=== PATIENT | female | born 1980 | race Caucasian/White ===

== ENCOUNTER 2017-04-29 10:25 | Inpatient (IN) | payer OTHER ==
[2017-04-29] MEDS ORDERED: LACTATED RINGERS 1,000 ML IV SCH (10:45)
[2017-04-29] MEDS ORDERED: LABETALOL 5 MG/ML VIAL MDV IVP STA ×3 (10:50→11:34)
[2017-04-29 11:25] LABS: Basophils % (A) 0 %; CHCM 34.7; Eosinophils # (A) 0.1 k/uL (0-0.7); Eosinophils % (A) 1 %; HCT 34.7 % (34.0-46.0); HDW 3.22; HGB 11.8 gm/dL (11.4-16.0); Luc # (Auto) 0.14; Luc % (Auto) 2; Lymphocytes # (A) 1.5 k/uL (1.0-4.8); Lymphocytes % (A) 16 %; MCH 28.5 pg (25.0-35.0); MCHC 33.9 g/dL (31.0-37.0); Mean Platelet Volume 7.3; Monocytes # (A) 0.4 k/uL (0-1.0); Monocytes % (A) 4 %; Neutrophils # (A) 7.6 k/uL (1.3-7.7); Neutrophils % (A) 78 %; RBC 4.13 m/uL (3.80-5.40); WBC 9.8 k/uL (3.8-10.6); WBC (Perox) 10.26
[2017-04-29 11:38] LABS: ALT 29 U/L (9-52); AST 19 U/L (14-36); Blood Urea Nitrogen 9 mg/dL (7-17); Non-African American GFR(MDRD) >60 (>60 ml/min/1.73 sqM); Uric Acid 5.8 mg/dL (3.7-7.4)
[2017-04-29] MEDS ORDERED: MAGNESIUM SULFATE IVPB ONE ×2 (11:45)
[2017-04-29] MEDS ORDERED: DEXTROSE 5% IVPB ONE ×2 (11:45)
[2017-04-29] MEDS ORDERED: WATER IVPB ONE ×2 (11:45)
[2017-04-29 11:54] LABS: Appearance,Urine Clear (Clear); Bacteria,Urine Occasional /hpf; Bilirubin,Urine Negative (Negative); Glucose,Urine (UA) Negative (Negative); Ketones,Urine Negative (Negative); Leukocyte Esterase,Urine Trace (Negative); Mucus,Urine Rare /hpf; Nitrite,Urine Negative (Negative); Particle Count 5795; Protein,Urine 1+ (Negative); Specific Gravity,Urine 1.011 (1.001-1.035); Squamous Epithelial Cell,Urine 1 /hpf (0-4); UA Billing (MACRO vs. MICRO) MICRO; Urobilinogen,Urine <2.0 mg/dL (<2.0); WBC,Urine 3 /hpf (0-5)
[2017-04-29] MEDS ORDERED: MAGNESIUM SULFATE-WATER PMX 20 GM in WATER FOR INJECTION 1 500ML.BAG IV SCH (12:00)
[2017-04-29] MEDS ORDERED: hydrALAZINE HCL 20 MG/ML 1 ML VIAL IM PRN (12:06)
[2017-04-29] MEDS ORDERED: BETAMET ACET-BETAMETH SOD PHOS 6 MG/ML VIAL IM SCH (13:15)
--- NOTE | 2017-04-29 13:21 | P.HPOB ---
History of Present Illness H&P Date: 04/29/17 Chief Complaint: 24-3/7 weeks, severe hypertension, possible preeclampsia The patient is a 37-year-old 1 para 0 admitted at 24-3/7 weeks as established by last menstrual period and 8 week ultrasound. She is admitted to triage following a visit 2 days ago in the office at which time her blood pressures were elevated in the range of 160s over 90s. She had preeclamptic labs drawn at that time and was asked to keep a lot of blood pressures at home. Her laboratories returned normal with a slightly elevated uric acid at approximately 5.8, normal platelet count, normal AST and ALT and no other significant findings. She presented to the office today with her 24-hour urine collection and a log of blood pressures at home yesterday in the range of 230/ 115-125. She did not call us with any of these levels. Blood pressure of that level was confirmed in our office and she was immediately sent to labor and delivery for further evaluation and workup. On labor and delivery, her opening blood pressure was in the range of 250/130. The labetalol protocol was initiated and she received 20 mg of labetalol at 1104 after a blood pressure of 230/119. 10 minutes later her blood pressures remained 222/111 and another 40 mg of labetalol was given. 10 minutes following that her blood pressure remained 193/91 and 80 mg of labetalol was given. At 1203 her blood pressure remained 179/123 and a dose of IV Apresoline was given. Her most recent blood pressure has come down to only 193/98. heart tones have been documented and are stable. The patient does complain of a headache but no other symptoms. The 24-hour urine returned with 301 mg of protein for 24 hours. Labs done today remained stable with nothing significantly elevated aside from her uric acid at 5.9. We have consult a critical-care to attempt to initiate an antihypertensive drip in order to allow her enough stability to be transferred. The case has been discussed with Dr. White, maternal medicine specialist at [facility] in [place]. She has accepted transfer 1 stability of blood pressure has been achieved. She has also recommended the patient be given a dose of steroids prior to transfer. She additionally carries a past medical history of pseudotumor cerebri which may or may not be of concern. Obstetrical history: 1 para 0 with current statistics listed in in history of present illness. EDC of 08/16/2017 was established by last menstrual period and confirmed by an 8 week ultrasound. She does fall into the category of advanced maternal age and declined testing. Laboratory workup otherwise demonstrates her blood type to be B+ with a negative antibody screen. Rubella status is immune. All other laboratory workup was within normal limits aside from a Pap smear showing low-grade changes. Early Glucola was within normal limits and second trimester Glucola has not yet been performed. Gynecologic history: Unremarkable with no history of any infections to include STDs. Review of Systems Review of systems is confined to history of present illness. Past Medical History History of Any Multi-Drug Resistant Organisms: None Reported Smoking Status: Never smoker Medications and Allergies Home Medications Medication Instructions Recorded Confirmed Type Pnv,Calcium 72/Iron/Folic Acid 04/29/17 History [ Plus Tablet] Allergies Allergy/AdvReac Type Severity Reaction Status Date / Time No Known Allergies Allergy Verified 04/29/17 10:36 Exam - Vital Signs Vital signs: Vital Signs Pulse Resp BP 04/29/17 12:35 90 20 197/82 04/29/17 12:29 88 20 187/95 04/29/17 12:00 82 16 180/103 04/29/17 11:56 78 20 195/93 04/29/17 11:51 96 20 179/123 04/29/17 11:46 90 20 195/112 Intake and Output 04/28/17 04/29/17 04/29/17 22:59 06:59 14:59 Other: Weight 150.593 kg Patient Weight 04/30/17 06:59 Weight 150.593 kg In general, this is a morbidly obese white female in no acute distress. Her heart has a regular rhythm and rate without murmur. Her lungs are clear to auscultation bilaterally in all cortes. Her abdomen is obese, nondistended, has normal active bowel sounds, soft, nontender, and without any palpable masses aside from uterine fundus which measures approximately 24-25 cm in fundal height. Her extremities are without any cyanosis, clubbing, or significant edema. They're nontender to palpation bilaterally. Digital cervical examination is deferred. Results Result Diagrams: 04/29/17 11:12 04/29/17 11:12 Abnormal Lab Results - Last 24 Hours (Table) 04/29/17 Range/Units 10:56 Urine Protein 1+ H (Negative) Ur Leukocyte Esterase Trace H (Negative) Urine Bacteria Occasional H (None) /hpf Urine Mucus Rare H (None) /hpf Assessment and Plan (1) 24 weeks gestation of Status: Acute (2) Hypertensive crisis Status: Acute Plan: Based upon laboratory data return to thus far, this does not appear to be severe preeclampsia though the diagnosis could be made based solely on blood pressures. In either case, we are working steadily to achieve stability of her blood pressures. To that effect critical care has been consulted to initiate and manage a antihypertensive drip in order to achieve stability for transfer of care. This case has been discussed with maternal medicine at [facility] who has accepted the transfer of care once blood pressures are stabilized. Betamethasone 12.5 mg is to be given intramuscularly now and will likely be repeated in 24 hours at the tertiary care institution. She additionally has been started on magnesium sulfate with a 6 g bolus followed by 2 g per hour. Further disposition will await her transferred to [facility] in [place]. She continues to be under close maternal surveillance and, as noted above, will be transferred 1 stability is achieved.
[2017-04-29 14:08] LABS: Glucose,Whole Blood 98 mg/dL (75-99)
[2017-04-29 14:10] VITALS: TEMP 98.1
[2017-04-29] MEDS: CLEVIDIPINE BUTYRATE 25 MG in EMPTY BAG 1 BAG IV SCH ×2 (14:38→16:09)
[2017-04-29 16:07] VITALS: BP 135/72; RESP 18
[2017-04-29 16:37] VITALS: PULSE 87
--- NOTE | 2017-04-29 20:18 | CONS ---
DATE OF CONSULTATION: This is a 37-year-old female. She is 1, para 0, admitted at 24-3/7 week . The patient apparently was discovered to have really high blood pressures. Currently her blood pressure is about 190/107. I was called by Dr. Leach the [facility] physician and I told him that I would be happy to manage her up here until she can be shipped out. She apparently received labetalol down there as well as Apresoline. Despite that, her blood pressure was still very high. We are going to start her on Cleviprex here in the ICU. A second IV was started. I may use some additional labetalol as well. Anyway, the patient is relatively comfortable. She has a really severe headaches though. She did receive quite a bit of magnesium. Other than that she is doing reasonably well. So far uneventful . First . Has no history of any major medical problems. Her past medical history and past surgical history are unremarkable. ALLERGIES: None. Medications at home only include vitamins. SOCIAL HISTORY: Negative for tobacco, alcohol or illicit drug use. Family history is noncontributory. The rest of her history is not too remarkable. OCCUPATIONAL HISTORY: She works at [employer] here in [place] [place]. REVIEW OF SYSTEMS: CONSTITUTIONAL: Negative. NEUROLOGICAL: Headache. HEENT: Negative. CARDIOVASCULAR: Negative. PULMONARY: Negative. GI/: Negative. RHEUMATOLOGICAL/IMMUNOLOGIC: Negative. ENDOCRINOLOGIC: Negative. Current vital signs include temperature 98.1, heart rate 85, respiratory rate 28, blood pressure 190/107, mean 134, room air saturations are 98%. Appears in no acute distress. Not having chest pain or chest discomfort. HEENT examination is grossly unremarkable. Mucous membranes are moist. No oral lesions. Neck is supple. Full range of motion. No adenopathy or thyromegaly. Neck veins are flat. Cardiovascular examination reveals regular rhythm and rate. S1, S2 normal. No S3, S4 or murmur. Lungs reveal clear breath sounds. No wheezes or rhonchi. No crackles. Breath sounds are equal bilaterally. Abdomen is soft. Bowel sounds are heard. Extremities are intact. Minimal edema. No significant edema. Skin without rash. Neurologic examination is currently nonfocal. Labs are reviewed. White count 9.8, hemoglobin 11.8, hematocrit 34.7, platelet count 348,000. BUN and creatinine were 9 and 0.67. Glucose was 98. Uric acid 5.8. Liver function tests were normal. Urine is showing 1+ protein, trace, leukocyte esterase, occasional bacteria, rare mucus. Nitrite negative. Leukocyte esterase was trace positive. Current medications are reviewed. She is on clevidipine drip. It is going to currently run to maintain her blood pressure in a more normal range. She has also had some hydralazine and some labetalol. She has had 3 or 4 doses of labetalol with escalating doses at 20, 40 and 80 mg. She is also received magnesium as well, I think, 6 grams. ASSESSMENT: 1. Hypertensive urgency/emergency in a patient who has got preeclampsia and 1, para 0 at nearly 25 weeks . 2. No other significant past medical history. PLAN: The patient was started on the dihydropyridine calcium randy, clevidipine. I may use some addition labetalol. Additional recommendations and suggestions are forthcoming. The patient will be shipped to [facility]. She is currently in the ICU. We will keep her obviously until she is stable or until she ships. Additional recommendations and suggestions are forthcoming.
== END 2017-04-29 17:25 | disposition short-term general hospital (02) | DRG 781 ==
LOC: FBPOP 10:25 → 4FBP 13:24 → 6ICU 13:28
PROVIDERS: ADMIT Obstetrics & Gynecology; ATTEND Obstetrics & Gynecology
DX: O14.92 Unspecified pre-eclampsia, second trimester (principal); Z68.43 Body mass index [BMI] 50.0-59.9, adult; Z3A.24 24 weeks gestation of pregnancy; O99.212 Obesity complicating pregnancy, second trimester; E66.01 Morbid (severe) obesity due to excess calories; Z79.899 Other long term (current) drug therapy
CPT/HCPCS: 51702; 81001; 82565; 84450; 84460; 84520; 84550; 85025; 96361; 96365; 96366; 96372; 96375; 99215

== ENCOUNTER 2017-07-19 22:19 | Emergency (ER) | payer OTHER ==
--- NOTE | 2017-07-20 00:06 | ED ---
General Adult HPI - General Chief complaint: Skin/Abscess/Foreign Body Stated complaint: Swelling/Rash Time Seen by Provider: 07/19/17 23:57 Source: patient, family, RN notes reviewed Mode of arrival: ambulatory Limitations: no limitations - History of Present Illness Initial comments: Patient 37-year-old female who presents emergency room today with a chief complaint of rash to the lower extremities. She states that she got home from work changed into different closing noticed that there is some redness to the lower shins bilaterally. She admits that she did feel somewhat achy today. She states she feels like her legs are little swollen. She denies any other complaints or symptoms. - Related Data Home Medications Medication Instructions Recorded Confirmed NIFEdipine [NIFEdipine ER] 60 mg PO BID 07/19/17 07/19/17 hydrALAZINE HCL [Hydralazine HCl] 50 mg PO Q6H 07/19/17 07/19/17 Allergies Allergy/AdvReac Type Severity Reaction Status Date / Time No Known Allergies Allergy Verified 07/19/17 22:25 Review of Systems ROS Statement: Those systems with pertinent positive or pertinent negative responses have been documented in the HPI. ROS Other: All systems not noted in ROS Statement are negative. 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 History of Any Multi-Drug Resistant Organisms: None Reported Past Surgical History: Section Additional Past Surgical History / Comment(s): Bilateral myringotomies with tubes, colposcopy Additional Past Anesthesia/Blood Transfusion Reaction / Comment(s): Pt aspirated with anesthesia during first myringotomy and was transfered to [facility]. Past Psychological History: No Psychological Hx Reported Smoking Status: Never smoker Past Alcohol Use History: None Reported Past Drug Use History: None Reported - Past Family History Father Family Medical History: Congestive Heart Failure (CHF), Myocardial Infarction ( [place]) Additional Family Medical History / Comment(s): Father at the age of 62 yrs pt believes from CHF. Mother Family Medical History: Hypertension Additional Family Medical History / Comment(s): Mother has a pacemaker. General Exam - General Exam Comments Initial Comments: General: The patient is awake and alert, in no distress, and does not appear acutely ill. Eye: Pupils are equal, round and reactive to light, extra-ocular movements are intact. No nystagmus. There is normal conjunctiva bilaterally. No signs of icterus. Ears, nose, mouth and throat: There are moist mucous membranes and no oral lesions. Neck: The neck is supple, there is no tenderness or JVD. Cardiovascular: There is a regular rate and rhythm. No murmur, rub or gallop is appreciated. Respiratory: Lungs are clear to auscultation, respirations are non-labored, breath sounds are equal. No wheezes, stridor, rales, or rhonchi. Gastrointestinal: Soft, non-distended, non-tender abdomen without masses or organomegaly noted. There is no rebound or guarding present. No CVA tenderness. Bowel sounds are unremarkable. Musculoskeletal: Normal ROM, no tenderness. Strength 5/5. Sensation intact. Pulses equal bilaterally 2+. Neurological: A&O x 3. CN II-XII intact, There are no obvious motor or sensory deficits. Coordination appears grossly intact. Speech is normal. Skin: Patient does have petechial type rash to the lower extremity. Psychiatric: Cooperative, appropriate mood & affect, normal judgment. Limitations: no limitations Course Vital Signs 07/19/17 07/20/17 22:20 00:15 Temperature 98.5 F 97.9 F Pulse Rate 132 H 105 H Respiratory 18 18 Rate Blood Pressure 173/105 171/97 O2 Sat by Pulse 98 98 Oximetry Medical Decision Making - Medical Decision Making Patient's labs reviewed unremarkable. Patient resting comfortably. Patient is advised close follow-up with her [facility] family doctor. Advised to use blood pressure medication. She states she last take it when she gets home. Case was discussed and seen by attending physician . - Lab Data Result diagrams: 07/20/17 01:00 07/20/17 01:00 Lab Results 07/20/17 07/20/17 07/20/17 Range/Units 00:25 00:25 01:00 WBC 9.3 (3.8-10.6) k/uL RBC 4.81 (3.80-5.40) m/uL Hgb 13.0 (11.4-16.0) gm/dL Hct 37.9 (34.0-46.0) % MCV 78.7 L (80.0-100.0) fL MCH 27.0 (25.0-35.0) pg MCHC 34.3 (31.0-37.0) g/dL RDW 13.5 (11.5-15.5) % Plt Count 347 (150-450) k/uL Neutrophils % 68 % Lymphocytes % 20 % Monocytes % 7 % Eosinophils % 3 % Basophils % 1 % Neutrophils # 6.3 (1.3-7.7) k/uL Lymphocytes # 1.9 (1.0-4.8) k/uL Monocytes # 0.7 (0-1.0) k/uL Eosinophils # 0.3 (0-0.7) k/uL Basophils # 0.0 (0-0.2) k/uL Sodium (137-145) mmol/L Potassium (3.5-5.1) mmol/L Chloride (98-107) mmol/L Carbon Dioxide (22-30) mmol/L Anion Gap mmol/L BUN (7-17) mg/dL Creatinine (0.52-1.04) mg/dL Est GFR (MDRD) Af Amer (>60 ml/min/1.73 sqM) Est GFR (MDRD) Non-Af (>60 ml/min/1.73 sqM) Glucose (74-99) mg/dL Calcium (8.4-10.2) mg/dL Total Bilirubin (0.2-1.3) mg/dL AST (14-36) U/L ALT (9-52) U/L Alkaline Phosphatase (38-126) U/L Total Protein (6.3-8.2) g/dL Albumin (3.5-5.0) g/dL Urine Color Yellow Urine Appearance Cloudy H (Clear) Urine pH 5.0 (5.0-8.0) Ur Specific [place] 1.020 (1.001-1.035) Urine Protein Negative (Negative) Urine Glucose (UA) Negative (Negative) Urine Ketones Negative (Negative) Urine Blood Negative (Negative) Urine Nitrite Negative (Negative) Urine Bilirubin Negative (Negative) Urine Urobilinogen <2.0 (<2.0) mg/dL Ur Leukocyte Esterase Negative (Negative) Urine RBC <1 (0-5) /hpf Urine WBC 1 (0-5) /hpf Ur Squamous Epith Cells 10 H (0-4) /hpf Urine Mucus Rare H (None) /hpf Urine HCG, Qual Not Detected (Not Detectd) 07/20/17 Range/Units 01:00 WBC (3.8-10.6) k/uL RBC (3.80-5.40) m/uL Hgb (11.4-16.0) gm/dL Hct (34.0-46.0) % MCV (80.0-100.0) fL MCH (25.0-35.0) pg MCHC (31.0-37.0) g/dL RDW (11.5-15.5) % Plt Count (150-450) k/uL Neutrophils % % Lymphocytes % % Monocytes % % Eosinophils % % Basophils % % Neutrophils # (1.3-7.7) k/uL Lymphocytes # (1.0-4.8) k/uL Monocytes # (0-1.0) k/uL Eosinophils # (0-0.7) k/uL Basophils # (0-0.2) k/uL Sodium 140 (137-145) mmol/L Potassium 4.0 (3.5-5.1) mmol/L Chloride 106 (98-107) mmol/L Carbon Dioxide 22 (22-30) mmol/L Anion Gap 12 mmol/L BUN 21 H (7-17) mg/dL Creatinine 0.90 (0.52-1.04) mg/dL Est GFR (MDRD) Af Amer >60 (>60 ml/min/1.73 sqM) Est GFR (MDRD) Non-Af >60 (>60 ml/min/1.73 sqM) Glucose 100 H (74-99) mg/dL Calcium 9.6 (8.4-10.2) mg/dL Total Bilirubin 0.4 (0.2-1.3) mg/dL AST 25 (14-36) U/L ALT 39 (9-52) U/L Alkaline Phosphatase 79 (38-126) U/L Total Protein 6.9 (6.3-8.2) g/dL Albumin 4.2 (3.5-5.0) g/dL Urine Color Urine Appearance (Clear) Urine pH (5.0-8.0) Ur Specific [place] (1.001-1.035) Urine Protein (Negative) Urine Glucose (UA) (Negative) Urine Ketones (Negative) Urine Blood (Negative) Urine Nitrite (Negative) Urine Bilirubin (Negative) Urine Urobilinogen (<2.0) mg/dL Ur Leukocyte Esterase (Negative) Urine RBC (0-5) /hpf Urine WBC (0-5) /hpf Ur Squamous Epith Cells (0-4) /hpf Urine Mucus (None) /hpf Urine HCG, Qual (Not Detectd) Disposition Clinical Impression: Hypertension Disposition: HOME SELF-CARE Condition: Good Instructions: Hypertension (ED) Additional Instructions: Please use medication as discussed. Please follow-up with [facility]/family doctor in the next 2 days of symptoms have not improved. Please return to emergency room if the symptoms increase or worsen or for any other concerns. Referrals: None,Stated [Primary Care Provider] - 1-2 days Ashu Leach MD [STAFF PHYSICIAN] - 1-2 days Sarah Nelson MD [STAFF PHYSICIAN] - 1-2 days Time of Disposition: 02:08
[2017-07-20 00:15] VITALS: TEMP 97.9
[2017-07-20 00:42] LABS: Appearance,Urine Cloudy (Clear); Bilirubin,Urine Negative (Negative); Glucose,Urine (UA) Negative (Negative); Ketones,Urine Negative (Negative); Leukocyte Esterase,Urine Negative (Negative); Mucus,Urine Rare /hpf; Nitrite,Urine Negative (Negative); Particle Count 3164; Protein,Urine Negative (Negative); RBC,Urine <1 /hpf (0-5); Squamous Epithelial Cell,Urine 10 /hpf (0-4); UA Billing (MACRO vs. MICRO) MICRO; Urobilinogen,Urine <2.0 mg/dL (<2.0); WBC,Urine 1 /hpf (0-5)
[2017-07-20 01:02] LABS: Basophils % (A) 1 %; CHCM 34.4; Eosinophils # (A) 0.3 k/uL (0-0.7); Eosinophils % (A) 3 %; HCT 37.9 % (34.0-46.0); HDW 3.16; Luc % (Auto) 2; Lymphocytes # (A) 1.9 k/uL (1.0-4.8); Lymphocytes % (A) 20 %; MCHC 34.3 g/dL (31.0-37.0); MCV 78.7 fL (80.0-100.0); Mean Platelet Volume 6.7; Monocytes # (A) 0.7 k/uL (0-1.0); Monocytes % (A) 7 %; Neutrophils # (A) 6.3 k/uL (1.3-7.7); Neutrophils % (A) 68 %; RBC 4.81 m/uL (3.80-5.40); RDW 13.5 % (11.5-15.5); WBC 9.3 k/uL (3.8-10.6); WBC (Perox) 9.35
[2017-07-20 01:18] LABS: ALT 39 U/L (9-52); AST 25 U/L (14-36); Alkaline Phosphatase 79 U/L (38-126); Anion Gap 12 mmol/L; Blood Urea Nitrogen 21 mg/dL (7-17); Calcium 9.6 mg/dL (8.4-10.2); Carbon Dioxide 22 mmol/L (22-30); Chloride 106 mmol/L (98-107); Glucose 100 mg/dL (74-99); Non-African American GFR(MDRD) >60 (>60 ml/min/1.73 sqM); Sodium 140 mmol/L (137-145); Total Bilirubin 0.4 mg/dL (0.2-1.3); Total Protein 6.9 g/dL (6.3-8.2)
[2017-07-20 02:22] VITALS: BP 157/78; PULSE 70; RESP 16
== END 2017-07-20 02:21 | disposition home or self-care (01) ==
LOC: EC 22:19
DX: I10 Essential (primary) hypertension (principal); R21 Rash and other nonspecific skin eruption; M79.89 Other specified soft tissue disorders; Z79.899 Other long term (current) drug therapy
CPT/HCPCS: 36415; 80053; 81001; 81025; 85025; 93005; 99283

== ENCOUNTER → 2019-12-20 | Outpatient (CLI) | payer BC ==
[2019-12-20 16:13] VITALS: BP 144/101; PULSE 91; TEMP 98.1; BMI 67.6
--- NOTE | 2019-12-20 16:32 | P.HPBAR ---
Bariatric H&P - History & Physicial H&P Date: 12/20/19 History & Physicial: Visit/CC: bariatric consultation Patient initial contact: Initial weight: 196.043 kg Initial weight in pounds: 432.20 Height: 5 ft 7 in Initial BMI: 67.6 Last weight: Current weight: 196.043 kg Current weight in pounds: 432.20 Current BMI: 67.6 Grady body weight (based on NIH guidelines): 196.043 kg Excess body weight loss: 0.0% The patient is a 39 year-old F who presents for Bariatric Assessment. HPI: Melva comes in with life long obesity. She is looking into the sleeve gastrectomy. Highest weight of 440 pounds. She has tried Weight watchers, Atkins, medical weight loss. Most weight loss of 85 pounds with Weight watchers. She has since gained weight. She has troubles with weight in her family including her mother and sister. She has gastroesophageal reflux. No stomach or esophageal cancer. No chronic diarrhea. No blood clots. No easy bruising. She still has her gallbladder. No family history of gallbladder problems. No food allergies. She has lower back pain. She has hip pain. She has knee pain left is worse than the right. She chronic bilateral lower leg swelling including of the ankles. She comes in with hypertension. She has sleep apnea untreated. She has chronic fatigue. MS: 2+ legs. PLAN: 1. 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 History of Any Multi-Drug Resistant Organisms: None Reported Past Surgical History: Section Additional Past Surgical History / Comment(s): Bilateral myringotomies with tubes, c-secton x1, Additional Past Anesthesia/Blood Transfusion Reaction / Comm: Pt aspirated with anesthesia during first myringotomy (age 9) and was transfered to [facility] (2 surgeries to ears after this with no anesthesia issues). under general anesthesia with no anesthesia issues Past Psychological History: Anxiety Additional Psychological History / Comment(s): Pt denies any psychological history. She resides with her fiancee. She works at [employer]. She is i ndependent. Smoking Status: Never smoker Past Alcohol Use History: None Reported Past Drug Use History: None Reported - Past Family History Father Family Medical History: Congestive Heart Failure (CHF), Myocardial Infarction ([place]) Additional Family Medical History / Comment(s): Father at the age of 62 yrs pt believes from CHF. Mother Family Medical History: Hypertension Additional Family Medical History / Comment(s): Mother has a pacemaker. Surgical - Exam Vital Signs Temp Pulse BP 98.1 F 91 144/101 12/20/19 15:52 12/20/19 15:52 12/20/19 15:52 Bariatric Checklist Checklist: Plan: Checklist: EGD: 1. Hiatal hernia: 2. H. Pylori: HgbA1c: Vitamin D: Smoking: Never smoker Primary care physician referral: Laith Avitia (mike Barillas) Psychiatry clearance: Cardiology clearance: Sleep study: Diet journal: VTE risk score: VTE risk level: Rehab needs at discharge:
[2019-12-20 17:57] LABS: HCT 38.8 % (34.0-46.0); HGB 13.1 gm/dL (11.4-16.0); MCH 27.7 pg (25.0-35.0); MCHC 33.8 g/dL (31.0-37.0); MCV 82.1 fL (80.0-100.0); Platelet Count 334 k/uL (150-450); RBC 4.73 m/uL (3.80-5.40); RDW 13.8 % (11.5-15.5); WBC 9.3 k/uL (3.8-10.6)
[2019-12-20 18:03] LABS: INR 0.9 (<1.2); Partial Thromboplastin Time 23.5 sec (22.0-30.0); Prothrombin Time 9.6 sec (9.0-12.0)
[2019-12-21 01:23] LABS: % Iron Saturation 13.89 (12.00-45.00); African American GFR (CKD) 109.2 (60.0-200.0); Albumin 4.6 g/dL (3.80-4.90); Albumin/Globulin Ratio 2.09 (1.60-3.17); Anion Gap 12.3 mmol/L (4.00-12.00); Calcium 9.3 mg/dL (8.7-10.3); Carbon Dioxide 25.7 mmol/L (21.6-31.8); Chol/HDL Ratio 3.35; Globulin 2.2 g/dL (1.6-3.3); LDL Cholesterol,Calculated 91.8 mg/dL (0.0-131.0); Magnesium 1.8 mg/dL (1.5-2.4); Non-African American GFR(CKD) 94.2 (60.0-200.0); Potassium 4.3 mmol/L (3.5-5.5); Total Bilirubin 0.4 mg/dL (0.3-1.2); Total Protein 6.8 g/dL (6.2-8.2); VLDL Calculation 23.2 mg/dL (5.00-40.00)
[2019-12-21 01:34] LABS: Ferritin 54.6 ng/mL (10.0-291.0)
[2019-12-21 01:48] LABS: Hemoglobin A1C 5.6 % (4.0-6.0)
[2019-12-21 01:51] LABS: Folate, Serum 9.9 ng/mL
[2019-12-22 11:04] LABS: Zinc, Serum 60 ug/dL (60-130)
[2019-12-22 15:15] LABS: Vitamin A 39 ug/dL (38-106)
[2019-12-24 01:20] LABS: Selenium 104 mcg/L (63-160)
[2019-12-25 08:29] LABS: Vit B1(Thiamine) 91 ug/L (38-122)
== END | disposition home or self-care (01) ==
LOC: BARWHC3 15:10
PROVIDERS: ATTEND Surgery Plastic and Reconstructive Surgery
DX: E66.01 Morbid (severe) obesity due to excess calories (principal); K21.9 Gastro-esophageal reflux disease without esophagitis; M54.5 Low back pain; M25.559 Pain in unspecified hip; M25.562 Pain in left knee; M25.561 Pain in right knee; M79.89 Other specified soft tissue disorders; I10 Essential (primary) hypertension; G47.30 Sleep apnea, unspecified; R53.82 Chronic fatigue, unspecified; E21.1 Secondary hyperparathyroidism, not elsewhere classified; E89.1 Postprocedural hypoinsulinemia; D50.9 Iron deficiency anemia, unspecified; E44.0 Moderate protein-calorie malnutrition; E55.9 Vitamin D deficiency, unspecified; K74.1 Hepatic sclerosis; N19 Unspecified kidney failure; K50.90 Crohn's disease, unspecified, without complications
CPT/HCPCS: 80053; 80061; 82306; 82525; 82607; 82728; 82746; 83036; 83540; 83550; 83735; 83970; 84100; 84134; 84255; 84425; 84443; 84590; 84630; 85027; 85610; 85730; 99211

== ENCOUNTER → 2019-12-25 | Outpatient (CLI) | payer BC ==
[2019-12-25 11:36] VITALS: BMI 68.6
== END | disposition home or self-care (01) ==
LOC: BARWHC3 08:45
PROVIDERS: ATTEND Surgery Plastic and Reconstructive Surgery
DX: E66.01 Morbid (severe) obesity due to excess calories (principal); Z68.44 Body mass index [BMI] 60.0-69.9, adult
CPT/HCPCS: 97804

== ENCOUNTER → 2020-01-08 | Day surgery (SDC) | payer BC ==
[2020-01-05 10:24] VITALS: BMI 67.1
[~2020-01-08] MED LIST: GLYCOPYRROLATE 0.2 MG/ML 2 ML VIAL ONE; KETAMINE 10 MG/ML 20 ML VIAL ONE; LACTATED RINGERS 1,000 ML IV SCH; LIDOCAINE 1% INJ 10MG/ML (20 ML MDV) ONE; LOSARTAN 50 MG TAB PO STA; METOPROLOL SUCCINATE (ER) 100 MG TAB.ER.24H PO STA; PROPOFOL 10 MG/ML 20 ML VIAL IV ONE; amLODIPine 10 MG TAB PO STA; hydrALAZINE HCL 10 MG TAB PO STA
--- NOTE | 2020-01-08 07:33 | P.GSHP ---
History of Present Illness H&P Date: 01/08/20 CHIEF COMPLAINT: GERD HISTORY OF PRESENT ILLNESS: The patient is a 39-year-old female who presents reports gastroesophageal reflux disease. Upper endoscopy was offered for further evaluation and management. PAST MEDICAL HISTORY: Please see list. PAST SURGICAL HISTORY: Please see list. MEDICATIONS: Please see list. ALLERGIES: Please see list. SOCIAL HISTORY: No illicit drug use FAMILY HISTORY: No reports of Crohn disease or ulcerative colitis. REVIEW OF ORGAN SYSTEMS: CONSTITUTIONAL: No reports of fevers or chills. GI: Denies any blood in stools or constipation. PHYSICAL EXAM: VITAL SIGNS: Stable GENERAL: Well-developed and pleasant in no acute distress. HEENT: No scleral icterus. Extraocular movements grossly intact. Moist buccal mucosa. NECK: Supple without lymphadenopathy. CHEST: Unlabored respirations. Equal bilateral excursions. CARDIOVASCULAR: Regular rate and rhythm. Distal 2+ pulses. ABDOMEN: Soft, nondistended. MUSCULOSKELETAL: No clubbing, cyanosis, or edema. ASSESSMENT: 1. Gastroesophageal reflux disease PLAN: 1. 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 History of Any Multi-Drug Resistant Organisms: None Reported Past Surgical History: Section Additional Past Surgical History / Comment(s): Bilateral myringotomies with tubes, c-secton x1, Past Anesthesia/Blood Transfusion Reactions: Previous Problems w/ Anesthesia Additional Past Anesthesia/Blood Transfusion Reaction / Comment(s): Pt aspirated with anesthesia during first myringotomy (age 9) and was transfered to [facility] (2 surgeries to ears after this with no anesthesia issues). under general anesthesia with no anesthesia issues Smoking Status: Never smoker - Past Family History Father Family Medical History: Congestive Heart Failure (CHF), Myocardial Infarction ([place]) Additional Family Medical History / Comment(s): Father at the age of 62 yrs pt believes from CHF. Mother Family Medical History: Hypertension Additional Family Medical History / Comment(s): Mother has a pacemaker. Medications and Allergies Home Medications Medication Instructions Recorded Confirmed Type ARIPiprazole [Abilify] 5 mg PO QAM 12/20/19 01/05/20 History Desvenlafaxine Succinate [Pristiq] 100 mg PO QAM 12/20/19 01/05/20 History Losartan Potassium [Cozaar] 100 mg PO QAM 12/20/19 01/05/20 History Metoprolol Succinate (ER) [Toprol 100 mg PO QAM 12/20/19 01/05/20 History Xl] amLODIPine [Norvasc] 10 mg PO QAM 12/20/19 01/05/20 History hydrALAZINE HCL 10 mg PO TID 12/20/19 01/05/20 History Ergocalciferol [Vitamin D2 50,000 unit PO FR 12/27/19 01/05/20 History (DRISDOL)] Allergies Allergy/AdvReac Type Severity Reaction Status Date / Time No Known Allergies Allergy Verified 01/05/20 10:16
[2020-01-08 13:06] VITALS: RESP 20; TEMP 97.4
[2020-01-08 14:35] VITALS: BP 154/90; PULSE 80
--- NOTE | 2020-01-11 09:53 | P.PCN ---
Date of Procedure: 01/08/20 Description of Procedure: PREOPERATIVE DIAGNOSIS: Gastroesophageal reflux disease. Morbid obesity. POSTOPERATIVE DIAGNOSIS: Morbid obesity. Gastritis. Gastroesophageal reflux disease. OPERATION: Esophagogastroduodenoscopy with biopsies along antrum. SURGEON: Urszula Emanuel MD ANESTHESIA: MAC. INDICATIONS: The patient is a 39-year-old female who presents with a history of reflux disease. Benefits and risks of the procedure were described. Informed consent was obtained. DESCRIPTION: The patient was brought into the endoscopy suite and laid in the left lateral decubitus position. An Olympus gastroscope was passed along the posterior oropharynx down to the distal esophagus where the squamocolumnar junction was encountered at 40 cm from the incisors. The stomach was entered and no bile reflux was found. Additional findings are listed below. Biopsies with cold forceps were obtained of the antrum. The first through third portion of the duodenum was examined and unremarkable. Retroflexion of the scope confirmed Hill grade 2 lower esophageal valve. The squamocolumnar junction demonstrated LA grade A erosive esophagitis. The stomach was desufflated. The patient tolerated the procedure well. FINDINGS: Squamocolumnar junction 40 cm from the incisors. Diaphragmatic hiatus at 40 cm. Hill grade 2 lower esophageal valve. LA grade A erosive esophagitis. No active duodenitis. Chronic gastritis RECOMMENDATIONS: Upper endoscopy as needed. Plan - Discharge Summary Discharge Rx Participant: No New Discharge Prescriptions: Continue amLODIPine [Norvasc] 10 mg PO QAM Losartan Potassium [Cozaar] 100 mg PO QAM Desvenlafaxine Succinate [Pristiq] 100 mg PO QAM hydrALAZINE HCL 10 mg PO TID Metoprolol Succinate (ER) [Toprol XL] 100 mg PO QAM ARIPiprazole [Abilify] 5 mg PO QAM Ergocalciferol [Vitamin D2 (DRISDOL)] 50,000 unit PO FR Discharge Medication List ARIPiprazole [Abilify] 5 mg PO QAM 12/20/19 [History] Desvenlafaxine Succinate [Pristiq] 100 mg PO QAM 12/20/19 [History] Losartan Potassium [Cozaar] 100 mg PO QAM 12/20/19 [History] Metoprolol Succinate (ER) [Toprol XL] 100 mg PO QAM 12/20/19 [History] amLODIPine [Norvasc] 10 mg PO QAM 12/20/19 [History] hydrALAZINE HCL 10 mg PO TID 12/20/19 [History] Ergocalciferol [Vitamin D2 (DRISDOL)] 50,000 unit PO FR 12/27/19 [History] Follow up Appointment(s)/Ref[facility] [place] [facility] - 01/24/20 Patient Instructions/Handouts: *[facility] - (Anesthesia) Endoscopy Discharge Instructions, Gastritis (DC), Upper Endoscopy (DC) Discharge Disposition: HOME SELF-CARE
== END | disposition home or self-care (01) ==
LOC: ORWHC2ENDO 12:40
PROVIDERS: ATTEND Surgery Plastic and Reconstructive Surgery
DX: K29.50 Unspecified chronic gastritis without bleeding (principal); K21.9 Gastro-esophageal reflux disease without esophagitis; I10 Essential (primary) hypertension; F41.9 Anxiety disorder, unspecified; F32.9 Major depressive disorder, single episode, unspecified; E66.01 Morbid (severe) obesity due to excess calories; Z79.899 Other long term (current) drug therapy; Z82.49 Family history of ischemic heart disease and other diseases of the circulatory system; Z96.22 Myringotomy tube(s) status; Z86.69 Personal history of other diseases of the nervous system and sense organs; Z68.44 Body mass index [BMI] 60.0-69.9, adult
CPT/HCPCS: 81025; 88305; 43239; J2001; J2704

== ENCOUNTER → 2020-01-24 | Outpatient (CLI) | payer BC ==
[2020-01-24 13:49] VITALS: BP 142/95; PULSE 86; RESP 16; TEMP 97.7; BMI 68.5
--- NOTE | 2020-01-24 16:55 | P.PN ---
Progress Note - Text Progress Note Date: 01/24/20 Patient not seen due to cancellation from emergency surgery
== END | disposition home or self-care (01) ==
LOC: BARWHC3 12:51
PROVIDERS: ATTEND Surgery Plastic and Reconstructive Surgery
DX: Z53.29 Procedure and treatment not carried out because of patient's decision for other reasons (principal)
CPT/HCPCS: 99211

== ENCOUNTER → 2020-02-05 | Outpatient (CLI) | payer BC ==
[2020-02-05 17:42] LABS: Basophils # (A) 0.1 k/uL (0-0.2); Basophils % (A) 1 %; Eosinophils # (A) 0.3 k/uL (0-0.7); Eosinophils % (A) 3 %; HCT 40.6 % (34.0-46.0); HGB 13.2 gm/dL (11.4-16.0); Lymphocytes # (A) 1.8 k/uL (1.0-4.8); Lymphocytes % (A) 19 %; MCH 26.1 pg (25.0-35.0); MCHC 32.4 g/dL (31.0-37.0); MCV 80.4 fL (80.0-100.0); Mean Platelet Volume 8.1; Monocytes # (A) 0.5 k/uL (0-1.0); Monocytes % (A) 6 %; Neutrophils # (A) 6.4 k/uL (1.3-7.7); Neutrophils % (A) 70 %; Platelet Count 318 k/uL (150-450); RBC 5.05 m/uL (3.80-5.40); RDW 14.2 % (11.5-15.5); WBC 9.1 k/uL (3.8-10.6)
[2020-02-05 18:17] LABS: ALT 52 U/L (4-34); AST 42 U/L (14-36); African American GFR (CKD) >90 (>60 ml/min/1.73 sqM); Albumin 4.6 g/dL (3.5-5.0); Alkaline Phosphatase 73 U/L (38-126); Anion Gap 12 mmol/L; Blood Urea Nitrogen 19 mg/dL (7-17); Calcium 9.8 mg/dL (8.4-10.2); Carbon Dioxide 26 mmol/L (22-30); Chloride 99 mmol/L (98-107); Glucose 93 mg/dL (74-99); Non-African American GFR(CKD) >90 (>60 ml/min/1.73 sqM); Potassium 4.6 mmol/L (3.5-5.1); Sodium 137 mmol/L (137-145); Total Bilirubin 0.4 mg/dL (0.2-1.3); Total Protein 7.7 g/dL (6.3-8.2)
== END ==
LOC: LABPAT 17:18
PROVIDERS: ATTEND Surgery Plastic and Reconstructive Surgery
DX: Z01.818 Encounter for other preprocedural examination (principal)
CPT/HCPCS: 80053; 85025

== ENCOUNTER 2020-02-12 07:30 | Inpatient (IN) | payer BC ==
[~2020-02-12 07:30] MED LIST changes: +DEXAMETHASONE SOD PHOSPHATE 10 MG/ML 1 ML VIAL IV ONE; -GLYCOPYRROLATE 0.2 MG/ML 2 ML VIAL ONE; -KETAMINE 10 MG/ML 20 ML VIAL ONE; -LACTATED RINGERS 1,000 ML IV SCH; +LIDOCAINE 1% (10MG/ML) FOR IV START INTRADERMA PRN; -LIDOCAINE 1% INJ 10MG/ML (20 ML MDV) ONE; -LOSARTAN 50 MG TAB PO STA; -METOPROLOL SUCCINATE (ER) 100 MG TAB.ER.24H PO STA; +MIDAZOLAM 2 MG/2 ML VIAL IV PRN; -PROPOFOL 10 MG/ML 20 ML VIAL IV ONE; -amLODIPine 10 MG TAB PO STA; +ceFAZolin 3 GM in SODIUM CHLORIDE 0.9% 100 ML IVPB ONE; -hydrALAZINE HCL 10 MG TAB PO STA
[2020-02-12] MEDS ORDERED: CHLORHEXIDINE GLUCONATE 15 ML CUP MUCOUS MEM ONE (07:59)
[2020-02-12] MEDS ORDERED: PANTOPRAZOLE 40 MG/10 ML VIAL IV STA (07:59)
[2020-02-12] MEDS ORDERED: SCOPOLAMINE 1.5MG/72HR PATCH TRANSDERM STA (07:59)
[2020-02-12] MEDS ORDERED: ENOXAPARIN 40 MG/0.4 ML SYRINGE SQ STA (07:59)
--- NOTE | 2020-02-12 08:13 | P.GSHP ---
History of Present Illness H&P Date: 02/12/20 DATE OF SERVICE: 02/11/2019 CHIEF COMPLAINT: Morbid obesity HISTORY OF PRESENT ILLNESS: Melva Norris is a 39 year-old female who comes in with life long obesity. She is looking into the sleeve gastrectomy. Highest weight of 440 pounds. She has tried Weight watchers, Atkins, medical weight loss . Most weight loss of 85 pounds with Weight watchers. She has since gained weight. She has troubles with weight in her family including her mother and sister. She has gastroesophageal reflux. No stomach or esophageal cancer. No chronic diarrhea. No blood clots. No easy bruising. She still has her gallbladder. No family history of gallbladder problems. No food allergies. She has lower back pain. She has hip pain. She has knee pain left is worse than the right. She chronic bilateral lower leg swelling including of the ankles. She comes in with hypertension. She has sleep apnea untreated. She has chronic fatigue. At height of 5 feet 7 inches, her ideal body weight is 158 pounds. She comes in 423 pounds. Her body mass index is 66.4 She is 265 pounds overweight. PAST MEDICAL HISTORY: See list PAST SURGICAL HISTORY: See list HOME MEDICATIONS: Home Medications Medication Instructions Recorded Confirmed ARIPiprazole [Abilify] 5 mg PO QAM 12/20/19 02/08/20 Desvenlafaxine Succinate [Pristiq] 100 mg PO QAM 12/20/19 02/08/20 Losartan Potassium [Cozaar] 100 mg PO QAM 12/20/19 02/08/20 Metoprolol Succinate (ER) [Toprol 100 mg PO QAM 12/20/19 02/08/20 XL] amLODIPine [Norvasc] 10 mg PO QAM 12/20/19 02/08/20 hydrALAZINE HCL 10 mg PO TID 12/20/19 02/08/20 Ergocalciferol [Vitamin D2 50,000 unit PO FR 12/27/19 02/08/20 (DRISDOL)] Multivitamins, Thera [Multivitamin 1 tab PO DAILY 02/08/20 02/08/20 (formulary)] ALLERGIES: Allergies Allergy/AdvReac Type Severity Reaction Status Date / Time No Known Allergies Allergy Verified 02/08/20 13:40 SOCIAL HISTORY: No current tobacco use. FAMILY HISTORY: No family history of ulcerative colitis disease or Crohn's disease. Family history of morbid obesity. No lupus in the family. No reports of stomach or esophageal cancer. REVIEW OF ORGAN SYSTEMS: CONSTITUTIONAL: At height of 5 feet 7 inches, her ideal body weight is 140 pounds. She comes in 219 pounds. Her body mass index is 66.4. She is 265 pounds overweight. HEENT: Denies any active troubles with vision or hearing. No troubles with swallowing. ENDOCRINE: No diabetes. No hypothyroidism. CARDIOVASCULAR: Past reports of palpitations or heart attacks or chest pain. RESPIRATORY: Has daytime somnolence. No asthma. GASTROINTESTINAL: Denies any bright red blood per rectum. No diarrhea. No constipation. MUSCULOSKELETAL: Has lower back pain and joint pain. Has osteoarthritis of the knees. History of bilateral lower extremity edema. NEURO: No headaches. No seizure disorders. PSYCH: Has depression. No suicidal ideation. RHEUMATOLOGIC: No lupus. No rheumatoid arthritis. HEMATOLOGIC: Denies any abnormal bleeding or bruising. No personal history of DVTs. SKIN: No rash. No skin cancer. PHYSICAL EXAM: VITAL SIGNS: Height 5 foot 7 inches, weight 423 pounds. BMI 66.4 GENERAL: Well-developed in no acute distress. HEENT: No scleral icterus. Extraocular movements grossly intact. Hears conversational speech. No nasal drainage. NECK: Supple without lymphadenopathy. CHEST: Nonlabored respirations with equal bilateral excursions. CARDIOVASCULAR: Regular rate and regular rhythm. Distal 2+ pulses. ABDOMEN: Obese, soft, nontender, nondistended. MUSCULOSKELETAL: No clubbing, cyanosis. Gross strength 5/5 distal lower extremities. 2+ pitting edema. NEURO: No focal or lateralizing signs. Cranial nerves 2 through 12 grossly within normal limits. PSYCH: Appropriate affect. Alert and oriented to person, place and time. SKIN: Good skin turgor. Well perfused. ASSESSMENT: 1. Morbid obesity due to excess calories 2. Body mass index of 66.4, initial 3. Osteoarthritis of the knees. 4. Osteoarthritis of the lower back. 5. Hypertensive heart disease. 6. Gastroesophageal reflux disease 7. Obstructive sleep apnea 8. Chronic obstructive pulmonary disease PLAN: 1. Bariatric options between a sleeve, band and a Martín-en-Y gastric bypass were reviewed in detail. The patient elected for a sleeve gastrectomy. Robotic assisted approach described. 2. The [place] [facility] Data was also reviewed with benefits and risks as described. 3. An 8 page second-generation bariatric consent form was reviewed in detail including potential of bleeding, infection, leaks, adequate weight loss, nutritional deficiencies which the patient demonstrated understanding of the risks. 4. A 2 week high-protein low caloric 800 kcal diet described to address hepatomegaly. 5. Preoperative labs including complete metabolic panel and CBC with type and screen recommended. 6. DVT prophylaxis per [place] [facility] collaborative. 7. Antibiotic prophylaxis. 8. Inpatient hospitalization anticipated for more than 2 nights. 9. All questions and concerns were addressed with the patient. 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 History of Any Multi-Drug Resistant Organisms: None Reported Past Surgical History: Section, Ear Surgery Additional Past Surgical History / Comment(s): Bilateral myringotomies with tubes x 4, Past Anesthesia/Blood Transfusion Reactions: Previous Problems w/ Anesthesia Additional Past Anesthesia/Blood Transfusion Reaction / Comment(s): Pt aspirated with anesthesia during first myringotomy (age 9) and was transfered to [facility] (2 surgeries to ears after this with no anesthesia issues). under general anesthesia with no anesthesia issues Smoking Status: Never smoker - Past Family History Father Family Medical History: Congestive Heart Failure (CHF), Myocardial Infarction (LA) Additional Family Medical History / Comment(s): Father at the age of 62 yrs pt believes from CHF. Mother Family Medical History: No Reported History Additional Family Medical History / Comment(s): . Medications and Allergies Home Medications Medication Instructions Recorded Confirmed Type ARIPiprazole [Abilify] 5 mg PO QAM 12/20/19 02/08/20 History Desvenlafaxine Succinate [Pristiq] 100 mg PO QAM 12/20/19 02/08/20 History Losartan Potassium [Cozaar] 100 mg PO QAM 12/20/19 02/08/20 History Metoprolol Succinate (ER) [Toprol 100 mg PO QAM 12/20/19 02/08/20 History XL] amLODIPine [Norvasc] 10 mg PO QAM 12/20/19 02/08/20 History hydrALAZINE HCL 10 mg PO TID 12/20/19 02/08/20 History Ergocalciferol [Vitamin D2 50,000 unit PO FR 12/27/19 02/08/20 History (DRISDOL)] Multivitamins, Thera [Multivitamin 1 tab PO DAILY 02/08/20 02/08/20 History (formulary)] Allergies Allergy/AdvReac Type Severity Reaction Status Date / Time No Known Allergies Allergy Verified 02/08/20 13:40
[2020-02-12] MEDS: LACTATED RINGERS 1,000 ML IV SCH (09:36)
[2020-02-12] MEDS ORDERED: ONDANSETRON 4 MG/2 ML VIAL IVP ONE (09:47)
[2020-02-12] MEDS ORDERED: KETAMINE 10 MG/ML 20 ML VIAL ONE (11:57)
[2020-02-12] MEDS ORDERED: NEOSTIGMINE 1 MG/ML 10 ML VIAL ONE (11:57)
[2020-02-12] MEDS ORDERED: LIDOCAINE 1% INJ 10MG/ML (20 ML MDV) ONE (11:57)
[2020-02-12] MEDS ORDERED: MIDAZOLAM 2 MG/2 ML VIAL ONE (11:57)
[2020-02-12] MEDS ORDERED: VECURONIUM 10 MG VIAL IV ONE (11:57)
[2020-02-12] MEDS ORDERED: fentaNYL (PF) 50 MCG/ML 2 ML AMP ONE (11:57)
[2020-02-12] MEDS ORDERED: GLYCOPYRROLATE 0.2 MG/ML 2 ML VIAL ONE (11:57)
[2020-02-12] MEDS ORDERED: PROPOFOL 10 MG/ML 20 ML VIAL IV ONE (11:57)
[2020-02-12] MEDS ORDERED: HYDROmorphone (PF) 1 MG/ML ONE (11:57)
[2020-02-12] MEDS ORDERED: SUCCINYLCHOLINE CHLORIDE VIAL 200 MG/10 ML VIAL IV ONE (11:57)
[2020-02-12] MEDS ORDERED: LIDOCAINE 1%-EPI 1:100,000 20 ML VIAL SQ ONE (12:30)
[2020-02-12] MEDS ORDERED: LACTATED RINGERS 1,000 ML IV ONE (12:36)
[2020-02-12] MEDS ORDERED: diphenhydrAMINE 50 MG/ML 1 ML VIAL IVP PRN (14:12)
[2020-02-12] MEDS ORDERED: NALOXONE 0.4 MG/ML 1 ML VIAL IV PRN (14:12)
--- NOTE | 2020-02-12 14:36 | P.OP ---
Date of Procedure: 02/12/20 Description of Procedure: SURGEON: BIBI CHILEL MD PREOPERATIVE DIAGNOSES: 1. Morbid obesity due to excess calories 2. Body mass index of 66.4, initial 3. Osteoarthritis of the knees. 4. Osteoarthritis of the lower back. 5. Hypertensive heart disease. 6. Gastroesophageal reflux disease 7. Obstructive sleep apnea 8. Chronic obstructive pulmonary disease POSTOPERATIVE DIAGNOSES: 1. Morbid obesity due to excess calories 2. Body mass index of 66.4, initial 3. Osteoarthritis of the knees. 4. Osteoarthritis of the lower back. 5. Hypertensive heart disease. 6. Gastroesophageal reflux disease 7. Obstructive sleep apnea 8. Chronic obstructive pulmonary disease OPERATION: 1. Robotic assisted daVinci Xi laparoscopic sleeve gastrectomy with 40-Ivorian bougie, multiport. 2. Intraoperative esophagogastroduodenoscopy. ANESTHESIA: Gen. local anesthetic ESTIMATED BLOOD LOSS: 5 mL SPECIMENS REMOVED: Sleeve gastrectomy COMPLICATIONS: None. INDICATIONS: Melva Norris is a 39 year-old female who comes in with life long obesity. She is looking into the sleeve gastrectomy. Highest weight of 440 pounds. She has tried Weight watchers, Atkins, medical weight loss. Most weight loss of 85 pounds with Weight watchers. She has since gained weight. She has troubles with weight in her family including her mother and sister. She has gastroesophageal reflux. No stomach or esophageal cancer. No chronic diarrhea. No blood clots. No easy bruising. She still has her gallbladder. No family history of gallbladder problems. No food allergies. She has lower back pain. She has hip pain. She has knee pain left is worse than the right. She chronic bilateral lower leg swelling including of the ankles. She comes in with hypertension. She has sleep apnea untreated. She has chronic fatigue. At height of 5 feet 7 inches, her ideal body weight is 158 pounds. She comes in 423 pounds. Her body mass index is 66.4 She is 265 pounds overweight. She comes in for sleeve gastrectomy. All surgical options for morbid obesity had been described using the [place] [facility]ariat[facility] surgery collaborative comorbidity resolution including complication risk score. A second-generation bariatric consent form was described in detail including the possibility of protein malnutrition, leaks, gastric stricture, venous thrombosis, gastroesophageal reflux disease, need for further surgery for which she demonstrated understanding. Benefits and risks of the procedure were described at length. Informed consent was obtained. DESCRIPTION: The patient was brought into the operating room theater. Preoperatively she had received Lovenox subcutaneously for DVT prophylaxis. Additionally she had Peridex oral solution as an oral decontaminant. After general induction, the abdomen was prepped and draped in standard sterile fashion. An Ioban draping was placed along the abdomen. A robotic da Joés Xi system was prepped and primed. The xiphoid to umbilicus measured 17 cm. At 15 cm from the xiphoid, proposed port sites were marked with indelible marker along the anterior axillary line bilaterally, mid axillary line bilaterally with each ports were marked 10 to 15 cm from each other. The portfolio assistant port was marked along the left lateral abdominal wall. The robotic stapler port was marked for the right midclavicular line. A 5 mm 0 degrees laparoscopic trocar entry was performed along the left upper quadrant. The abdomen was insufflated to 15 mmHg pressure was tolerated well. Diagnostic laparoscopy demonstrated no injury to bowel, viscera, or mesentery. The liver surface was unremarkable. The liver edge was crisp consistent with low-carb high-protein diet for 2 weeks. No injury had occurred to the small bowel or viscera. Along the hiatus no evidence of large prominent hiatal hernia was found. A 8 mm port was placed along the left upper abdominal wall after exchanging the 5 mm port. A separate 8 mm port was placed along the left lateral abdominal wall. Please note that the ports were placed at least 20 cm away from the target anatomy. Care was taken to check each robotic arms were safely away from collision with the bed or the patient. At the epigastrium, a median sized Lisa liver retractor was placed under direct visualization with the [employer] placed under the right shoulder of the patient. Next, 12-mm robot stapler port was placed along the right upper quadrant. The camera 8-mm port was maintained along the epigastrium, The patient was repositioned in reverse Trendelenburg position at 20-degrees after lowering the bed. The robot was docked along the left side of the patient. Using a grasper for arm 4, a vessel sealer for arm 3, including grasper for arm 1, the robotic system was docked and primed as described. Instruments were interchanged by the portfolio assistant for stapler loads. The camera was placed at 30-degrees down. I had sat at the console. She had very limited working space within the abdomen despite adjusting the pressures to bariatric mode. The pylorus was identified and 6 cm proximally along the greater curvature of the stomach, the short gastrics were mobilized upwards to the angle of His using a vessel sealer. Hemostasis was excellent during this portion of the procedure. Next, the upper pole of the stomach was adherent to the left sonu, which was gently dissected free using atraumatic grasper. Additionally, the medial spleen was completely adherent to the upper pole of the stomach as well as gastric cardia which was gently dissected without injury to the spleen. The nursing ribbing machine operator placed a 40-Ivorian blunted bougie into the stomach. Robotic stapler green loads 60 mm were used to create the sleeve. Initial firing was across the antrum of the stomach towards the angle of His. The staple line was completely hemostatic and linear without corkscrewing. Hemostasis was excellent. The space from the angularis incisura of the sleeve was approximately 4 cm. I then went to the head of the bed to perform the intraoperative esophagogastroduodenoscopy leak test. The upper pole of the stomach was bathed using normal saline solution. The scope was withdrawn with careful inspection along the staple line for which no leaks were found along the entire length. Additionally,the sleeve was completely hemostatic without any encroachment along the angularis incisura. Its topology was a soft "J". No stricture was encountered upon placement of the scope. The GI tract was desufflated. The patient tolerated this portion of the procedure well. The scope was completely withdrawn. The robot was undocked. I then rescrubbed into case, whereby the irrigation fluid was aspirated from the abdominal cavity. Tisseel fibrin sealant was placed along the entire staple length. Once dried the Lisa liver retractor was removed. Attention was now brought to removal of the specimen. The distal end of the sleeve gastrectomy specimen was brought out through the 12 mm port at the left upper quadrant. The specimen was gently removed en total. No contamination had occurred during this process. All instruments and pneumoperitoneum including irrigation fluid was removed from the abdominal cavity. The 12 mm port site was closed using 0-Vicryl and Cy Umanzorson and irrigated with diluted hydrogen peroxide. The final incisions were closed using subcuticular interrupted suture of 4-0 Monocryl. Exofin was applied to the skin once the skin had been cleansed. OptiFoam dressing was placed along the stomach extraction site. At the end of the procedure, needle, sponge, and instrument count was verified correct by the surgical nurse practitioner. The patient was taken to the postanesthesia care unit in stable condition. She had tolerated the procedure well. Intraoperative films and findings were reviewed with the patient's family. FINDINGS: 1. Negative intraoperative esophagogastrojejunoscopy leak test. 2. No hepatomegaly and no large hiatus hernia. 3. 60 mm green robot shoaib used to create the gastric sleeve. 4. Xiphoid to umbilicus of 17 cm. 5. Trocars placed 15 cm from xiphoid process 6. Console time 41 minutes
[2020-02-12] MEDS: fentaNYL (PF) 50 MCG/ML 2 ML AMP IVP PRN ×2 (14:44→14:51)
[2020-02-12] MEDS: HYDROmorphone 0.5 MG/0.5 ML SYRINGE IVP PRN ×2 (15:03→15:08)
[2020-02-12] MEDS: hydrALAZINE HCL 10 MG TAB PO SCH ×2 (16:51→20:18)
[2020-02-12] MEDS: ONDANSETRON 4 MG/2 ML VIAL IVP SCH ×2 (16:53→23:42)
[2020-02-12] MEDS: ACETAMINOPHEN IV (For NPO) 1,000 MG in EMPTY BAG 1 BAG IVPB SCH ×2 (17:20→23:42)
[2020-02-12] MEDS: HYOSCYAMINE ORAL DROPS 1.875 MG/15 ML BOTTLE PO SCH ×2 (17:22→23:42)
[2020-02-12] MEDS: SIMETHICONE 40 MG/0.6 ML DROPS 2,000 MG/30 ML BOTTLE PO SCH ×2 (17:23→23:43)
[2020-02-12] MEDS: 0.9% NACL WITH KCL 20 MEQ/L 1,000 ML IV SCH ×2 (17:44→23:41)
[2020-02-12] MEDS: ALBUTEROL NEBULIZED 2.5 MG/3 ML INHALATION SCH ×2 (19:25)
[2020-02-12] MEDS: HYDROmorphone 1 MG/ML 1 ML SYRINGE IVP PRN (20:21)
[2020-02-13] MEDS: HYDROmorphone 1 MG/ML 1 ML SYRINGE IVP PRN ×2 (02:27→09:23)
[2020-02-13 03:43] VITALS: RESP 18
[2020-02-13] MEDS: ACETAMINOPHEN IV (For NPO) 1,000 MG in EMPTY BAG 1 BAG IVPB SCH (05:27)
[2020-02-13] MEDS: LACTATED RINGERS 1,000 ML IV SCH (05:28)
[2020-02-13] MEDS: HYOSCYAMINE ORAL DROPS 1.875 MG/15 ML BOTTLE PO SCH (05:28)
[2020-02-13] MEDS: SIMETHICONE 40 MG/0.6 ML DROPS 2,000 MG/30 ML BOTTLE PO SCH (05:28)
[2020-02-13] MEDS: ONDANSETRON 4 MG/2 ML VIAL IVP SCH (05:29)
[2020-02-13] MEDS: 0.9% NACL WITH KCL 20 MEQ/L 1,000 ML IV SCH (05:35)
[2020-02-13] MEDS: ALBUTEROL NEBULIZED 2.5 MG/3 ML INHALATION SCH ×2 (07:23→11:28)
[2020-02-13 07:42] LABS: African American GFR (CKD) >90 (>60 ml/min/1.73 sqM); Anion Gap 12 mmol/L; Blood Urea Nitrogen 12 mg/dL (7-17); Calcium 8.4 mg/dL (8.4-10.2); Carbon Dioxide 21 mmol/L (22-30); Chloride 105 mmol/L (98-107); Non-African American GFR(CKD) 83 (>60 ml/min/1.73 sqM); Phosphorus 3.7 mg/dL (2.5-4.5); Sodium 138 mmol/L (137-145)
[2020-02-13 07:57] LABS: Basophils % (A) 0 %; Eosinophils % (A) 0 %; HCT 36.9 % (34.0-46.0); HGB 11.8 gm/dL (11.4-16.0); Lymphocytes # (A) 0.9 k/uL (1.0-4.8); Lymphocytes % (A) 10 %; MCH 26.3 pg (25.0-35.0); MCV 82.3 fL (80.0-100.0); Mean Platelet Volume 8.5; Monocytes # (A) 0.6 k/uL (0-1.0); Monocytes % (A) 6 %; Neutrophils # (A) 7.8 k/uL (1.3-7.7); Neutrophils % (A) 83 %; Platelet Count 297 k/uL (150-450); RBC 4.49 m/uL (3.80-5.40); RDW 14.2 % (11.5-15.5); WBC 9.4 k/uL (3.8-10.6)
[2020-02-13] MEDS ORDERED: 1: MVI, ADULT NO.4 WITH VIT K 10 ML, THIAMINE 100 MG, FOLIC ACID 1 MG, POTASSIUM CHLORID IV SCH ×6 (08:00)
[2020-02-13 08:49] VITALS: TEMP 98.2
[2020-02-13] MEDS ORDERED: LOSARTAN 50 MG TAB PO SCH (09:00)
[2020-02-13] MEDS ORDERED: METOPROLOL SUCCINATE (ER) 100 MG TAB.ER.24H PO SCH (09:00)
[2020-02-13] MEDS ORDERED: ENOXAPARIN 40 MG/0.4 ML SYRINGE SQ SCH (09:00)
[2020-02-13] MEDS ORDERED: PANTOPRAZOLE 40 MG/10 ML VIAL IV SCH (09:00)
[2020-02-13] MEDS ORDERED: amLODIPine 10 MG TAB PO SCH (09:00)
[2020-02-13] MEDS: hydrALAZINE HCL 10 MG TAB PO SCH (09:15)
--- NOTE | 2020-02-13 09:20 | FL ---
EXAMINATION TYPE: FL UGI DATE OF EXAM: 02/13/2020 LIMITED UGI: CLINICAL HISTORY: Morbid Obesity, gastric sleeve surgery yesterday. TECHNIQUE: Limited esophagram is performed utilizing 20 oz of Isovue-370. A total of 39 seconds of f luoroscopic time was utilized during procedure. 33 spot images saved during procedure. COMPARISON: None. FINDINGS: Exam noted slightly suboptimal secondary to patient's large body habitus. The patient swal lowed contrast without difficulty or delay. Esophageal peristalsis and motility are within normal li mits. There is mild delay in flow of contrast along the diaphragmatic hiatus into proximal stomach a nd satisfactory subsequent flow through proximal anastomosis into gastric sleeve. There is satisfacto ry flow from distal sleeve into pylorus and duodenal sweep. Patient remains asymptomatic. There is no evidence of contrast extravasation to suggest leak. IMPRESSION: No evidence of leak or significant obstruction status post recent gastric sleeve surgery yesterday.
[2020-02-13 09:42] VITALS: BP 118/88
[2020-02-13 11:38] VITALS: BMI 66.2
[2020-02-13 11:42] VITALS: PULSE 92
[2020-02-13] MEDS ORDERED: SODIUM CHLORIDE 0.9% 2,000 ML IV STA (11:49)
--- NOTE | 2020-02-13 12:25 | P.DS ---
<Emmy Sahni - Last Filed: 02/13/20 12:23> Providers Expected date of discharge: 02/13/20 Hospital Course: 39-year-old female who underwent robotic-assisted laparoscopic sleeve gastrectomy with Dr. Emanuel. Esophagram completed postoperatively negative for leak or obstruction. Patient has been tolerating clear liquid diet without nausea or vomiting. Pain is controlled on oral medications. Vital signs and stable Patient is stable for discharge home today. Please see EMR for further hospital course details. Discharge Diagnosis: 1. Morbid obesity due to excess calories 2. Body mass index of 66.4, initial 3. Osteoarthritis of the knees. 4. Osteoarthritis of the lower back. 5. Hypertensive heart disease. 6. Gastroesophageal reflux disease 7. Obstructive sleep apnea 8. Chronic obstructive pulmonary disease Nurse practitioner note has been reviewed by physician. Signing provider agrees with the documented findings, assessment, and plan of care. Patient Condition at Discharge: Good Plan - Discharge Summary Discharge Rx Participant: Yes New Discharge Prescriptions: New Bisacodyl [Dulcolax] 5 mg PO DAILY PRN #10 tablet. PRN Reason: Constipation Simethicone 40 mg/0.6 ml Drops [Mylicon Drops] 40 mg PO [facility]CHS PRN #30 ml PRN Reason: Gas Omeprazole [PriLOSEC] 40 mg PO DAILY #30 capsule. Ondansetron Odt [Zofran Odt] 4 mg PO Q8HR PRN #9 tab PRN Reason: Nausea Acetaminophen Oral Susp [Tylenol] 650 mg PO Q4H PRN #500 ml PRN Reason: Pain Continue amLODIPine [Norvasc] 10 mg PO QAM Losartan Potassium [Cozaar] 100 mg PO QAM Desvenlafaxine Succinate [Pristiq] 100 mg PO QAM hydrALAZINE HCL 10 mg PO TID Metoprolol Succinate (ER) [Toprol XL] 100 mg PO QAM ARIPiprazole [Abilify] 5 mg PO QAM Discontinued Ergocalciferol [Vitamin D2 (DRISDOL)] 50,000 unit PO FR Multivitamins, Thera [Multivitamin (formulary)] 1 tab PO DAILY Discharge Medication List ARIPiprazole [Abilify] 5 mg PO QAM 12/20/19 [History] Desvenlafaxine Succinate [Pristiq] 100 mg PO QAM 12/20/19 [History] Losartan Potassium [Cozaar] 100 mg PO QAM 12/20/19 [History] Metoprolol Succinate (ER) [Toprol XL] 100 mg PO QAM 12/20/19 [History] amLODIPine [Norvasc] 10 mg PO QAM 12/20/19 [History] hydrALAZINE HCL 10 mg PO TID 12/20/19 [History] Acetaminophen Oral Susp [Tylenol] 650 mg PO Q4H PRN #500 ml 02/13/20 [Rx] Bisacodyl [Dulcolax] 5 mg PO DAILY PRN #10 tablet. 02/13/20 [Rx] Omeprazole [PriLOSEC] 40 mg PO DAILY #30 capsule. 02/13/20 [Rx] Ondansetron Odt [Zofran Odt] 4 mg PO Q8HR PRN #9 tab 02/13/20 [Rx] Simethicone 40 mg/0.6 ml Drops [Mylicon Drops] 40 mg PO PCHS PRN #30 ml 02/13/20 [Rx] Patient Instructions/Handouts: Laparoscopic Sleeve Gastrectomy (DC) Activity/Diet/Wound Care/Special Instructions: Your follow up with take place via phone over the next few days No lifting over 4 pounds You may shower. No soaking or tub baths Very light activity until you are reevaluated at your follow up appointment with your surgeon Continue diet per bariatric center schedule No straws or carbonated beverages Avoid beverages with greater than 6 g of sugar to avoid dumping syndrome Open or crush all medications greater than the size of a tic tac Discharge Disposition: HOME SELF-CARE <Urszula Emanuel - Last Filed: 02/14/20 14:04> Providers Date of admission: 02/12/20 08:44 Attending physician: Urszula Emanuel Primary care physician: Erica Huang [place] [facility] Course: Patient during further well following sleeve gastrectomy. Intraoperative findings including completion of her sleeve gastrectomy reviewed. She'll continue with her blood pressure medications. Outpatient follow up initially through telephone contact. Patient to follow up with the bariatric center within 10 days.
[2020-02-14] MEDS ORDERED: BISACODYL 5 MG TABLET.DR PO PRN (08:00)
== END 2020-02-13 15:04 | disposition home or self-care (01) | DRG 621 ==
LOC: 2ORMAIN 08:44 → 4SSUR 15:56
PROVIDERS: ADMIT Surgery Plastic and Reconstructive Surgery; ATTEND Surgery Plastic and Reconstructive Surgery
PROC: 0DB64Z3 Excision of Stomach, Percutaneous Endoscopic Approach, Vertical (ICD-10-PCS; principal; 2020-02-12 10:35)
PROC: 0DJ08ZZ Inspection of Upper Intestinal Tract, Via Natural or Artificial Opening Endoscopic (ICD-10-PCS; principal; 2020-02-12 10:35)
PROC: 8E0W4CZ Robotic Assisted Procedure of Trunk Region, Percutaneous Endoscopic Approach (ICD-10-PCS; principal; 2020-02-12 10:35)
DX: E66.01 Morbid (severe) obesity due to excess calories (principal); G47.33 Obstructive sleep apnea (adult) (pediatric); I11.9 Hypertensive heart disease without heart failure; J44.9 Chronic obstructive pulmonary disease, unspecified; K21.9 Gastro-esophageal reflux disease without esophagitis; M17.0 Bilateral primary osteoarthritis of knee; M47.9 Spondylosis, unspecified; R53.82 Chronic fatigue, unspecified; Z68.44 Body mass index [BMI] 60.0-69.9, adult; Z79.899 Other long term (current) drug therapy; Z82.49 Family history of ischemic heart disease and other diseases of the circulatory system
CPT/HCPCS: 36415; 74240; 80051; 80053; 81025; 82310; 82565; 83735; 84100; 84520; 85025; 86850; 86900; 86901; 88307; 94640; 94760; 94762

== ENCOUNTER → 2020-02-21 | Outpatient (CLI) | payer BC ==
[2020-02-21 14:16] VITALS: BP 141/76; PULSE 88; RESP 16; TEMP 97.9
--- NOTE | 2020-02-21 14:22 | P.PN ---
Subjective Progress Note Date: 02/21/20 No reports of reflux. She states taking blood pressure medications. She feels well. Pain along the incision site improved. Protein intake over 75 g. She is drinking adequate fluids. No dizziness. She status post sleeve. Weight loss of 30 pounds in 1 month. Follow-up 1 month postop. Otherwise doing very well. Objective - Vital Signs Vital signs: Vital Signs Temp 97.9 F 02/21/20 14:14 Pulse 88 02/21/20 14:14 Resp 16 02/21/20 14:14 BP 141/76 02/21/20 14:14 Pulse Ox
[2020-02-21 15:15] VITALS: BMI 63.7
== END | disposition home or self-care (01) ==
LOC: BARWHC3 13:51
PROVIDERS: ATTEND Surgery Plastic and Reconstructive Surgery
DX: Z48.815 Encounter for surgical aftercare following surgery on the digestive system (principal); Z01.810 Encounter for preprocedural cardiovascular examination; I10 Essential (primary) hypertension; E66.01 Morbid (severe) obesity due to excess calories; F41.9 Anxiety disorder, unspecified; F32.1 Major depressive disorder, single episode, moderate; E28.2 Polycystic ovarian syndrome; Z79.899 Other long term (current) drug therapy; Z68.44 Body mass index [BMI] 60.0-69.9, adult; Z88.8 Allergy status to other drugs, medicaments and biological substances
CPT/HCPCS: 97803; 99211

== ENCOUNTER → 2020-03-13 | Outpatient (CLI) | payer BC ==
[2020-03-13 14:13] VITALS: BP 123/69; PULSE 66; RESP 16; TEMP 98.1; BMI 61.2
--- NOTE | 2020-03-13 14:23 | P.PN ---
Subjective Progress Note Date: 03/13/20 DATE OF SERVICE: 03/13/2020 CHIEF COMPLAINT: Status post sleeve gastrectomy HISTORY OF PRESENT ILLNESS: Melva Norris is a 39-year-old female who is status post sleeve gastrectomy, 02/12/2020. She is 1 month out. She has lost 40 pounds. She is able to walk with endurance which is new for her. Her blood pressure has improved. She has occasional left upper quadrant pain. No gastroesophageal reflux disease. She denies dysphagia. At height of 5 feet 7 inches, her ideal body weight is 158 pounds. Her highest weight is 440 pounds, BMI 69.1. She comes in 390 pounds from 406 pounds, 3 weeks out. She has lost 16 pounds in 3 weeks. Her body mass index is down from 69.1 to 61.2. Lifetime weight loss of 50 pounds. Percent excess weight loss lifetime 18%. She is 232 pounds overweight. PHYSICAL EXAM: VITAL SIGNS: Height 5 foot 7 inches, weight 390 pounds. BMI 61.2 Vital Signs Temp 98.1 F 03/13/20 14:11 Pulse 66 03/13/20 14:11 Resp 16 03/13/20 14:11 BP 123/69 03/13/20 14:11 Pulse Ox Intake & Output 03/13/20 03/14/20 03/14/20 18:59 06:59 18:59 Weight 177.355 kg GENERAL: Well-developed in no acute distress. HEENT: No scleral icterus. Extraocular movements grossly intact. Hears conversational speech. No nasal drainage. NECK: Supple without lymphadenopathy. CHEST: Nonlabored respirations with equal bilateral excursions. CARDIOVASCULAR: Regular rate and regular rhythm. Distal 2+ pulses. ABDOMEN: Incisions are clean, dry and intact. Dressing removed. No infection. MUSCULOSKELETAL: No clubbing, cyanosis. NEURO: No focal or lateralizing signs. Cranial nerves 2 through 12 grossly within normal limits. PSYCH: Appropriate affect. Alert and oriented to person, place and time. SKIN: Good skin turgor. Well perfused. ASSESSMENT: 1. Morbid obesity due to excess calories 2. Body mass index of 69.1 to 61.2 3. Osteoarthritis of the knees. 4. Osteoarthritis of the lower back. 5. Hypertensive heart disease. 6. Gastroesophageal reflux disease 7. Chronic fatigue 8. Depressive disorder 9. 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 Anxiety disorder 12. Status post sleeve gastrectomy PLAN: 1. Recommend start of multivitamin. 2. Recommend home blood pressure checks. 3. Recommend bariatric labs Objective - Vital Signs Vital signs: Vital Signs Temp 98.1 F 03/13/20 14:11 Pulse 66 03/13/20 14:11 Resp 16 03/13/20 14:11 BP 123/69 03/13/20 14:11 Pulse Ox Intake & Output 03/12/20 03/13/20 03/13/20 18:59 06:59 18:59 Weight 177.355 kg
--- NOTE | 2020-03-13 14:26 | P.PN ---
Progress Note - Text Progress Note Date: 03/13/20 To whom it may concern: Melva Norris is under my surgical care. She may return to work WednesdayMarch 18 without restrictions. Regards, Urszula Emanuel MD
== END | disposition home or self-care (01) ==
LOC: BARWHC3 13:45
PROVIDERS: ATTEND Surgery Plastic and Reconstructive Surgery
DX: E66.01 Morbid (severe) obesity due to excess calories (principal); Z68.44 Body mass index [BMI] 60.0-69.9, adult; M17.9 Osteoarthritis of knee, unspecified; M47.816 Spondylosis without myelopathy or radiculopathy, lumbar region; I11.9 Hypertensive heart disease without heart failure; K21.9 Gastro-esophageal reflux disease without esophagitis; R53.82 Chronic fatigue, unspecified; F32.9 Major depressive disorder, single episode, unspecified; G51.0 Bell's palsy; F41.9 Anxiety disorder, unspecified; Z98.84 Bariatric surgery status; G93.2 Benign intracranial hypertension
CPT/HCPCS: 97803; 99211

== ENCOUNTER → 2020-03-14 | Outpatient (CLI) | payer BC ==
[2020-03-14 11:03] LABS: HCT 42.9 % (34.0-46.0); HGB 13.8 gm/dL (11.4-16.0); MCH 26.4 pg (25.0-35.0); MCHC 32.1 g/dL (31.0-37.0); MCV 82.2 fL (80.0-100.0); Mean Platelet Volume 9.3; Platelet Count 259 k/uL (150-450); RBC 5.22 m/uL (3.80-5.40); RDW 15.2 % (11.5-15.5); WBC 6.7 k/uL (3.8-10.6)
[2020-03-14 11:10] LABS: Partial Thromboplastin Time 24.7 sec (22.0-30.0); Prothrombin Time 10.4 sec (9.0-12.0)
[2020-03-14 16:15] LABS: % Iron Saturation 11.93 (12.00-45.00); African American GFR (CKD) 83.3 (60.0-200.0); Albumin 4.5 g/dL (3.80-4.90); Albumin/Globulin Ratio 1.8 (1.60-3.17); Calcium 9.6 mg/dL (8.7-10.3); Chol/HDL Ratio 4.54; Globulin 2.5 g/dL (1.6-3.3); LDL Cholesterol,Calculated 97.2 mg/dL (0.0-131.0); Magnesium 1.8 mg/dL (1.5-2.4); Non-African American GFR(CKD) 71.9 (60.0-200.0); Potassium 4.3 mmol/L (3.5-5.5); Total Bilirubin 0.5 mg/dL (0.3-1.2); VLDL Calculation 26.8 mg/dL (5.00-40.00)
[2020-03-14 16:26] LABS: Ferritin 122.5 ng/mL (10.0-291.0)
[2020-03-14 16:29] LABS: Folate, Serum 10.1 ng/mL
[2020-03-14 17:01] LABS: Hemoglobin A1C 5.2 % (4.0-6.0)
[2020-03-15 12:02] LABS: Vitamin A 31 ug/dL (38-106)
[2020-03-15 12:06] LABS: Zinc, Serum 72 ug/dL (60-130)
== END | disposition home or self-care (01) ==
LOC: LABWHC1 10:41
PROVIDERS: ATTEND Surgery Plastic and Reconstructive Surgery
DX: E21.1 Secondary hyperparathyroidism, not elsewhere classified (principal); E89.1 Postprocedural hypoinsulinemia; D50.9 Iron deficiency anemia, unspecified; E44.0 Moderate protein-calorie malnutrition; E55.9 Vitamin D deficiency, unspecified; K74.1 Hepatic sclerosis; N19 Unspecified kidney failure; K50.90 Crohn's disease, unspecified, without complications
CPT/HCPCS: 36415; 80053; 80061; 82306; 82525; 82607; 82728; 82746; 83036; 83540; 83550; 83735; 83970; 84100; 84134; 84255; 84425; 84443; 84590; 84630; 85027; 85610; 85730

== ENCOUNTER 2022-03-08 16:18 | Emergency (ER) | payer BC, OTHER ==
[2022-03-08] MEDS ORDERED: SODIUM CHLORIDE 0.9% 1,000 ML IV STA (17:59)
--- NOTE | 2022-03-08 18:01 | ED ---
General Adult HPI - General Chief complaint: Nausea/Vomiting/Diarrhea Stated complaint: Diarrhea,weakness Time Seen by Provider: 03/08/22 17:51 Source: patient Mode of arrival: ambulatory Limitations: no limitations - History of Present Illness Initial comments: Patient presents to the ED with her friend for evaluation. Patient states that she has had watery diarrhea for the past 6 days or so. Patient states that she now feels generally weak. Patient states that the frequency of her diarrhea has decreased over the past couple of days. Patient also states that she had a single bout of emesis yesterday when she attempted to eat some food. Patient denies feeling nauseated currently. Patient states that her diarrhea has mainly been yellow and brown in color. Patient denies known sick contact or recent travel abroad. Patient denies recent antibiotic use. Patient denies having any pain, fever or chills, headache, focal neuro deficit, chest pain or pressure, dyspnea, cough or cold symptoms, palpitations, dizziness, abdominal pain, bloody or melanotic stools, hematemesis, decreased urine output, dysuria or urinary symptoms, or any other symptoms or complaints. - Related Data Previous Rx's Medication Instructions Recorded Loperamide HCl [Imodium A-D] 2 mg PO Q4H PRN #20 tablet 03/09/22 Allergies Allergy/AdvReac Type Severity Reaction Status Date / Time No Known Allergies Allergy Verified 03/08/22 19:37 Review of Systems ROS Statement: Those systems with pertinent positive or pertinent negative responses have been documented in the HPI. ROS Other: All systems not noted in ROS Statement are negative. 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 History of Any Multi-Drug Resistant Organisms: None Reported Past Surgical History: Bariatric Surgery, Section Additional Past Surgical History / Comment(s): Bilateral myringotomies with tubes, c-secton x1, sleeve gastrectomy 02-12-20 Past Anesthesia/Blood Transfusion Reactions: Previous Problems w/ Anesthesia Additional Past Anesthesia/Blood Transfusion Reaction / Comment(s): Pt aspirated with anesthesia during first myringotomy (age 9) and was transfered to [facility] (2 surgeries to ears after this with no anesthesia issues). under general anesthesia with no anesthesia issues Past Psychological History: Anxiety Smoking Status: Never smoker Past Alcohol Use History: None Reported Past Drug Use History: None Reported - Past Family History Mother Family Medical History: No Reported History Additional Family Medical History / Comment(s): . General Exam Limitations: no limitations General appearance: alert, in no apparent distress Head exam: Present: atraumatic, normocephalic Eye exam: Present: normal appearance, EOMI ENT exam: Present: mucous membranes dry Neck exam: Present: other (Trachea is in midline) Respiratory exam: Present: normal lung sounds bilaterally. Absent: respiratory distress, wheezes, rales, rhonchi, stridor Cardiovascular Exam: Present: normal rhythm, tachycardia, normal heart sounds, other (Normal radial pulses bilaterally) GI/Abdominal exam: Present: soft, normal bowel sounds, other (Obese abdomen). Absent: tenderness, guarding Extremities exam: Absent: pedal edema Back exam: Absent: CVA tenderness (R), CVA tenderness (L) Neurological exam: Present: alert, oriented X3. Absent: motor sensory deficit Psychiatric exam: Present: normal affect, normal mood Skin exam: Present: warm, dry, intact, normal color Course Vital Signs 03/08/22 16:40 Temperature 98.2 F Pulse Rate 124 H Respiratory 20 Rate Blood Pressure 143/103 O2 Sat by Pulse 98 Oximetry - Reevaluation(s) Reevaluation #1: 03/09/22 01:02 Patient has been hydrated with 3 L of IV fluids in the ED, and her tachycardia has now improved. Patient states that she is feeling much better now. Patient's abdomen remains soft and nontender on examination. Patient remains alert and breathing comfortably. Patient denies development of any new symptoms while in the ED. Patient is aware of her test results, and she feels comfortable being discharged home at this time. Patient was instructed to, and agrees to, drink plenty of fluids to stay hydrated. Patient was counseled about diarrheal illnesses, and she was clearly explained return and follow-up instructions. Patient was instructed to have a low threshold for return to the emergency department should her symptoms worsen. Patient was also instructed to follow up closely with her primary care provider. Patient feels comfortable with this plan. Medical Decision Making - Medical Decision Making Patient's physical exam and laboratory findings are suggestive of dehydration. Patient was hydrated with 3 L of normal saline in the ED with significant improvement in her symptoms. Patient's C. diff study is negative. Patient is afebrile and without leukocytosis. Patient was instructed to drink plenty of fluids to stay well hydrated. Will discharge patient home with a prescription for Imodium. Patient feels comfortable with this plan. - Lab Data Result diagrams: 03/08/22 18:31 03/08/22 18:31 Lab Results 03/08/22 03/08/22 03/08/22 Range/Units 18:31 18: 21:00 WBC 8.2 (3.8-10.6) k/uL RBC 6.36 H (3.80-5.40) m/uL Hgb 16.9 H (11.4-16.0) gm/dL Hct 50.7 H (34.0-46.0) % MCV 79.7 L (80.0-100.0) fL MCH 26.6 (25.0-35.0) pg MCHC 33.4 (31.0-37.0) g/dL RDW 13.9 (11.5-15.5) % Plt Count 401 (150-450) k/uL MPV 7.9 Neutrophils % (Manual) 69 % Lymphocytes % (Manual) 18 % Monocytes % (Manual) 9 % Eosinophils % (Manual) 4 % Neutrophils # (Manual) 5.66 (1.3-7.7) k/uL Lymphocytes # (Manual) 1.48 (1.0-4.8) k/uL Monocytes # (Manual) 0.74 (0-1.0) k/uL Eosinophils # (Manual) 0.33 (0-0.7) k/uL Nucleated RBCs 0 (0-0) /100 WBC Manual Slide Review Performed Toxic Vacuolation Present Sodium 137 (137-145) mmol/L Potassium 3.6 (3.5-5.1) mmol/L Chloride 104 (98-107) mmol/L Carbon Dioxide 13 L (22-30) mmol/L Anion Gap 20 mmol/L BUN 26 H (7-17) mg/dL Creatinine 2.13 H (0.52-1.04) mg/dL Est GFR (CKD-EPI)AfAm 33 (>60 ml/min/1.73 sqM) Est GFR (CKD-EPI)NonAf 29 (>60 ml/min/1.73 sqM) Glucose 119 H (74-99) mg/dL Calcium 9.6 (8.4-10.2) mg/dL Magnesium 1.8 (1.6-2.3) mg/dL Total Bilirubin 0.9 (0.2-1.3) mg/dL AST 31 (14-36) U/L ALT 29 (4-34) U/L Alkaline Phosphatase 82 (38-126) U/L Total Protein 8.8 H (6.3-8.2) g/dL Albumin 4.8 (3.5-5.0) g/dL Lipase 247 (23-300) U/L C. difficile (EIA) Intrp Negative (Negative) Disposition Clinical Impression: Diarrhea, Dehydration Disposition: HOME SELF-CARE Condition: Stable Instructions (If sedation given, give patient instructions): Dehydration (ED), Acute Diarrhea (ED) Additional Instructions: Return to the ER immediately should you develop persistent or bloody vomiting/diarrhea, a fever, any significant pain, feeling dizzy or faint, shortness of breath, or new or worsening symptoms. Follow up closely with your primary care provider. Prescriptions: Loperamide HCl [Imodium A-D] 2 mg PO Q4H PRN #20 tablet PRN Reason: Diarrhea Is patient prescribed a controlled substance at d/c from ED?: No Referrals: None,Stated [Primary Care Provider] - 1-2 days Padma Duron MD [REFERRING] - 1-2 days Time of Disposition: 01:02
[2022-03-08 18:38] LABS: HCT 50.7 % (34.0-46.0); HGB 16.9 gm/dL (11.4-16.0); MCH 26.6 pg (25.0-35.0); MCHC 33.4 g/dL (31.0-37.0); MCV 79.7 fL (80.0-100.0); Mean Platelet Volume 7.9; Platelet Count 401 k/uL (150-450); RBC 6.36 m/uL (3.80-5.40); RDW 13.9 % (11.5-15.5); WBC 8.2 k/uL (3.8-10.6)
[2022-03-08 18:52] LABS: Albumin 4.8 g/dL (3.5-5.0); Calcium 9.6 mg/dL (8.4-10.2); Magnesium 1.8 mg/dL (1.6-2.3); Potassium 3.6 mmol/L (3.5-5.1); Total Bilirubin 0.9 mg/dL (0.2-1.3); Total Protein 8.8 g/dL (6.3-8.2)
[2022-03-08] MEDS ORDERED: SODIUM CHLORIDE 0.9% 1,000 ML IV ONE ×2 (19:01→21:36)
[2022-03-08 19:18] LABS: Eosinophils # (M) 0.33 k/uL (0-0.7); Lymphocytes # (M) 1.48 k/uL (1.0-4.8); Monocytes # (M) 0.74 k/uL (0-1.0); Neutrophils # (M) 5.66 k/uL (1.3-7.7); Neutrophils % (M) 69 %; Nucleated Red Blood Cells 0 /100 WBC (0-0); Total Cells Counted 100
[2022-03-08 19:19] LABS: Toxic Vacuolation Present
[2022-03-09 01:01] VITALS: BP 137/114; RESP 18; TEMP 98.7
[2022-03-09 01:02] VITALS: PULSE 103
== END 2022-03-09 01:05 | disposition home or self-care (01) ==
LOC: EC 16:18
DX: R19.7 Diarrhea, unspecified (principal); E86.0 Dehydration; I10 Essential (primary) hypertension
CPT/HCPCS: 36415; 80053; 83690; 83735; 85025; 87045; 87046; 87324; 96360; 96361; 99284

== ENCOUNTER 2022-05-05 08:59 | Day surgery (SDC) | payer OTHER ==
[2022-05-01 12:07] VITALS: BMI 53.2
[~2022-05-05 08:59] MED LIST changes: -DEXAMETHASONE SOD PHOSPHATE 10 MG/ML 1 ML VIAL IV ONE; +LACTATED RINGERS 1,000 ML IV SCH; -MIDAZOLAM 2 MG/2 ML VIAL IV PRN; -ceFAZolin 3 GM in SODIUM CHLORIDE 0.9% 100 ML IVPB ONE
[2022-05-05 09:31] VITALS: RESP 16; TEMP 97.3
[2022-05-05] MEDS ORDERED: PROPOFOL 10 MG/ML 20 ML VIAL IV ONE (09:51)
--- NOTE | 2022-05-05 09:54 | P.GSHP ---
History of Present Illness H&P Date: 05/05/22 Chief Complaint: Change in bowel habits, family history of colon cancer 6-year-old female here today for colonoscopy. Patient has had intermittent diarrhea. Patient's sister unfortunately recently from colon cancer. She has not had a colonoscopy previously. Past Medical History Past Medical History: Hypertension Additional Past Medical History / Comment(s): Pseudotumor cerebri (behind eyes), hx Yee's Palsy as a child (left side facial paralysis), hx HPV with surgery, cardiac murmur. History of Any Multi-Drug Resistant Organisms: None Reported Past Surgical History: Bariatric Surgery, Section, Ear Surgery Additional Past Surgical History / Comment(s): Bilateral myringotomies with tubes, secton X1, sleeve gastrectomy 02-12-20. Past Anesthesia/Blood Transfusion Reactions: Previous Problems w/ Anesthesia Additional Past Anesthesia/Blood Transfusion Reaction / Comment(s): Pt aspirated with anesthesia during first myringotomy (age 9) and was transfered to [facility]. (2 surgeries to ears after this with no anesthesia issues.) Had Section under general anesthesia with no anesthesia issues. Past Psychological History: Anxiety Smoking Status: Never smoker Past Alcohol Use History: None Reported Past Drug Use History: None Reported - Past Family History Mother Family Medical History: No Reported History Additional Family Medical History / Comment(s): . Sister(s) Family Medical History: Cancer Additional Family Medical History / Comment(s): Colon cancer. Medications and Allergies Home Medications Medication Instructions Recorded Confirmed Type Desvenlafaxine Succinate [Pristiq] 50 mg PO HS 05/01/22 05/05/22 History Losartan Potassium [Cozaar] 100 mg PO HS 05/01/22 05/05/22 History amLODIPine [Norvasc] 10 mg PO HS 05/01/22 05/05/22 History Allergies Allergy/AdvReac Type Severity Reaction Status Date / Time No Known Allergies Allergy Verified 05/05/22 09:32 Surgical - Exam Vital Signs Temp Pulse Resp BP Pulse Ox 97.3 F L 78 16 154/91 98 05/05/22 09:30 05/05/22 09:30 05/05/22 09:30 05/05/22 09:30 05/05/22 09:30 Physical exam: General: Well-developed, well-nourished HEENT: Normocephalic, sclerae nonicteric Abdomen: Nontender, nondistended Extremities: No edema Neuro: Alert and oriented Assessment and Plan (1) Change in bowel habits Narrative/Plan: Will proceed with colonoscopy Current Visit: Yes Status: Acute Code(s): R19.4 - CHANGE IN BOWEL HABIT SNOMED Code(s): 007760234
--- NOTE | 2022-05-05 10:07 | P.PCN ---
Date of Procedure: 05/05/22 Procedure(s) Performed: PREOPERATIVE DIAGNOSIS: Colon cancer screening POSTOPERATIVE DIAGNOSIS: Normal exam PROCEDURE: Colonoscopy ANESTHESIA: MAC SURGEON: Juan Sim M.D. SPECIMENS: None ENDOSCOPIC PROCEDURE: The patient was placed on the endoscopy table in the left decubitus position. The Olympus colonoscope was inserted into the anus and passed under direct visualization to the base of the cecum. The appendiceal orifice was visualized. From that point the scope was slowly withdrawn inspecti ng all surfaces carefully. There were no neoplastic inflammatory or polypoid lesions throughout the cecum, ascending, transverse, descending, sigmoid and rectum. There was no visible diverticulosis noted. Digital rectal examination was normal. The patient was taken to the recovery room in stable condition per anesthesia guidelines. RECOMMENDATIONS: Resume diet. Follow-up colonoscopy 5 years.
[2022-05-05 10:40] VITALS: BP 129/86; PULSE 70
== END 2022-05-05 10:45 | disposition home or self-care (01) ==
LOC: ORWHC2ENDO 08:59
PROVIDERS: ATTEND Surgery
DX: R19.4 Change in bowel habit (principal); Z80.0 Family history of malignant neoplasm of digestive organs; R19.7 Diarrhea, unspecified; I10 Essential (primary) hypertension
CPT/HCPCS: 45378; 81025; J2704

== ENCOUNTER 2022-08-22 01:24 | Emergency (ER) | payer OTHER ==
[2022-08-22 01:34] VITALS: BP 186/109; PULSE 86; RESP 18; TEMP 98
[2022-08-22] MEDS ORDERED: PENICILLIN V POTASSIUM 250 MG TAB PO STA (01:43)
[2022-08-22] MEDS ORDERED: ACET/COD 300 MG/30 MG STARTER PACK 6 TAB BTL PO STA (01:43)
--- NOTE | 2022-08-22 01:43 | ED ---
ENT HPI - General Chief complaint: Dental/Oral Stated complaint: dental pain Time Seen by Provider: 08/22/22 01:34 Source: patient Mode of arrival: ambulatory Limitations: no limitations - History of Present Illness Initial comments: Patient is a 42-year-old female presenting with chief complaint of toothache. Patient states that for the last 3 days she has had pain on the right lower side of the jaw. Patient has no known broken tooth to the area, she had root canal previously performed but has not had the tooth extracted yet. Patient states that since the weekend is approaching she hopes she can get some pain medication until she is able to get in with her dentist. Denies shortness of breath, chest pain, dysphagia, fever, chills, nausea, vomiting, trismus, muffled voice, weakness, neck pain or stiffness, vision or hearing changes, headache. - Related Data Home Medications Medication Instructions Recorded Confirmed Desvenlafaxine Succinate [Pristiq] 50 mg PO HS 05/01/22 05/05/22 Losartan Potassium [Cozaar] 100 mg PO HS 05/01/22 05/05/22 amLODIPine [Norvasc] 10 mg PO HS 05/01/22 05/05/22 Previous Rx's Medication Instructions Recorded Penicillin V Potassium [Pen Vee K] 500 mg PO QID #28 tab 08/22/22 Allergies Allergy/AdvReac Type Severity Reaction Status Date / Time No Known Allergies Allergy Verified 08/22/22 01:34 Review of Systems ROS Statement: Those systems with pertinent positive or pertinent negative responses have been documented in the HPI. ROS Other: All systems not noted in ROS Statement are negative. Past Medical History Past Medical History: Hypertension Additional Past Medical History / Comment(s): Pseudotumor cerebri (behind eyes), hx Yee's Palsy as a child (left side facial paralysis), hx HPV with surgery, cardiac murmur. History of Any Multi-Drug Resistant Organisms: None Reported Past Surgical History: Bariatric Surgery, Section, Ear Surgery Additional Past Surgical History / Comment(s): Bilateral myringotomies with tubes, secton X1, sleeve gastrectomy 3-20. Past Anesthesia/Blood Transfusion Reactions: Previous Problems w/ Anesthesia Additional Past Anesthesia/Blood Transfusion Reaction / Comment(s): Pt aspirated with anesthesia during first myringotomy (age 9) and was transfered to [facility]. (2 surgeries to ears after this with no anesthesia issues.) Had Section under general anesthesia with no anesthesia issues. Past Psychological History: Anxiety Smoking Status: Never smoker Past Alcohol Use History: None Reported Past Drug Use History: None Reported - Past Family History Mother Family Medical History: No Reported History Additional Family Medical History / Comment(s): . Sister(s) Family Medical History: Cancer Additional Family Medical History / Comment(s): Colon cancer. General Exam Limitations: no limitations General appearance: alert, in no apparent distress Head exam: Present: atraumatic, normocephalic, normal inspection Eye exam: Present: normal appearance, EOMI. Absent: scleral icterus, periorbital swelling ENT exam: Present: normal exam, normal oropharynx, mucous membranes moist Expanded Mouth exam: Present: normal external inspection, tongue normal. Absent: drooling, trismus, muffled voice Teeth exam: Present: fractured tooth #. Absent: dental tenderness #, gingival enlargement Neck exam: Present: normal inspection, full ROM. Absent: tenderness Neurological exam: Present: alert, oriented X3, CN II-XII intact Psychiatric exam: Present: normal affect, normal mood Skin exam: Present: warm, dry, intact, normal color. Absent: rash Course Vital Signs 08/22/22 01:31 Temperature 98 F Pulse Rate 86 Respiratory 18 Rate Blood Pressure 186/109 O2 Sat by Pulse 100 Oximetry Medical Decision Making - Medical Decision Making Patient is a 42-year-old female presenting with chief complaint of dental pain. Has been ongoing for the last 3 days. On examination there is no gingival enlargement or tenderness, there is clear fractured tooth on the right lower side. Patient is not having any difficulty breathing or swallowing. Patient is given pain medication and placed on prophylactic penicillin VK. Instructed to follow-up with her dentist as soon as possible. Follow-up with PCP. Report back to ER with any new or worsening symptoms. Discussed return parameters and answered all questions. Patient conveyed verbal understanding and agreed to the plan. I discussed this case in detail with my attending Dr. Rogers. Disposition Clinical Impression: Toothache Disposition: HOME SELF-CARE Condition: Good Instructions (If sedation given, give patient instructions): Dental Abscess (ED), Toothache (ED) Additional Instructions: Follow-up with dentist. Report back to ER with any new or worsening symptoms. Take medication as prescribed. Prescriptions: Penicillin V Potassium [Pen Vee K] 500 mg PO QID #28 tab Is patient prescribed a controlled substance at d/c from ED?: No Referrals: Tanya Caldera MD [Primary Care Provider] - 1-2 days Time of Disposition: 01:43
== END 2022-08-22 02:03 | disposition home or self-care (01) ==
LOC: EC 01:24
DX: K08.89 Other specified disorders of teeth and supporting structures (principal); I10 Essential (primary) hypertension; Z79.899 Other long term (current) drug therapy; F41.9 Anxiety disorder, unspecified
CPT/HCPCS: 99283

== ENCOUNTER → 2024-01-13 | Outpatient (CLI) | payer OTHER ==
--- NOTE | 2024-01-14 14:50 | MM ---
Reason for Exam: Screening (asymptomatic). Baseline mammogram. Patient History: Menarche at age 14. First Full-Term at age 37. Late child-bearing (after 32). Last menstrual period: Risk Values: Tana 5 year model risk: 0.8%. NCI Lifetime model risk: 13.5%. Prior Study Comparison: Patient's first Mammogram. Tissue Density: The breast tissue is almost entirely fat. Findings: Analyzed By CAD. There is no suspicious group of microcalcifications or new suspicious mass. Overall Assessment: Negative, BI-RAD 1 Management: Screening Mammogram of both breasts in [address] [facility] will attempt to contact patient to return for supplemental views and ultrasound if indicated. Patient should continue monthly self-breast exams. A clinical breast exam by your physician is recommended on an annual basis. This exam should not preclude additional follow-up of suspicious palpable abnormalities. Note on Tana scores and lifetime risk: 1. A Tana score greater than 3% is considered moderate risk. If this is the case, consider specialist referral to assess eligibility for a risk reducing agent. 2. If overall lifetime risk for the development of breast cancer is 20% or higher, the patient may qualify for future screening with alternating mammogram and breast MRI. Electronically signed and approved by: Zak Davenport DO
== END | disposition home or self-care (01) ==
LOC: RADMAMWWP 10:54
PROVIDERS: ATTEND Family Medicine
DX: Z12.31 Encounter for screening mammogram for malignant neoplasm of breast (principal)
CPT/HCPCS: 77067